=== PATIENT | female | born 2000 | race Caucasian/White ===

== ENCOUNTER 2020-07-22 20:34 | Emergency (ER) | payer OTHER, SELFPAY ==
[2020-07-22 20:55] VITALS: BP 149/87; PULSE 90; RESP 17; TEMP 36.9; O2SAT 97; BMI 34.2
--- NOTE | 2020-07-22 20:59 | ED_ITS ---
HPI - General Adult General: Chief complaint: Needlestick/Injury/Exposure Stated complaint: stuck with dirty needle Time Seen by Provider: 07/22/20 20:45 History of Present Illness: HPI narrative: Patient is a 20-year-old female who presents to the ED after a needlestick. Patient is [employer] and works with was [employer]. 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 Patient went to grab it to remove it and felt something poke her right hand. She dropped the towel and it had dirty needle in it. Patient says that she feels some pain and tingling at the thenar region of the right hand but denies any other symptoms. Patient unaware of what needle contained. She said that the [employer] who placed the needle on passenger seat of car picked needle up on the side of the road earlier today. Associated symptoms: Deny chest pain, dyspnea, headache(s), nausea, rash, palpitations or vomiting Review of Systems Narrative: Patient had an accidental needlestick to right hand. Const: Denies: fever(s), chills or fatigue Eyes: Denies: change in vision or eye discomfort ENMT: Denies: throat pain, odynophagia, nasal discharge or nasal congestion Card: Denies: chest pain, palpitations, edema, swelling of feet/ankles, dyspnea on exertion or orthopnea Resp: Denies: dyspnea, productive cough or non-productive cough GI: Denies: abdominal pain, nausea, vomiting, diarrhea, constipation or hematochezia : Denies: flank pain, dysuria or hematuria Musc: Reports: extremity pain (Mild right hand tenderness.); Denies: neck pain, back pain or extremity swelling Skin/Breast: Denies: rash or new lesions Neuro: Denies: headache(s), numbness in extremities or weakness in extremities Physical Exam Const: COMMON NORMALS: no acute distress, patient oriented x3, healthy appearing and alert GENERAL APPEARANCE: cooperative and comfortable HENMT: COMMON NORMALS: normocephalic HEAD & SCALP: normocephalic MOUTH: Normal oral and palatal mucosa present THROAT: posterior oropharynx normal and uvula midline Eye: COMMON NORMALS: Equal, round and reactive pupils present PUPIL: Yes Equal, round and reactive pupils present Neck/C-Spine: COMMON NORMALS: supple GENERAL: Yes normal visual inspection Resp: COMMON NORMALS: normal respiratory effort, No retractions, No use of accessory muscles and clear to auscultation bilaterally AUSCULTATION: clear to auscultation bilaterally Cardio: COMMON NORMALS: regular rate, regular rhythm, S1 normal heart sound present, S2 normal heart sound present, No gallops present (Cardio), No clicks present (Cardio), No murmurs present (Cardio) and Peripheral pulses 2+ throughout RATE: regular rate RHYTHM: regular rhythm HEART SOUNDS: S1 normal heart sound present and S2 normal heart sound present PERIPHERAL PULSES: Peripheral pulses 2+ throughout GI: COMMON NORMALS: Normal to inspection, nondistended, normoactive bowel so unds present, Soft to palpation, non-tender and no masses PALPATION: Yes Soft to palpation : COMMON NORMALS: Yes no CVA tenderness BLADDER/KIDNEY EXAM: Yes no CVA tenderness Back/Pelvis: COMMON NORMALS: no CVA tenderness Extremity: COMMON NORMALS: normal to inspection NARRATIVE EXTREMITY EXAM: No visible puncture wounds seen on right hand. No swelling, erytheme. Neuro: COMMON NORMALS: patient oriented x3 and moves all extremities SENSORIUM/ORIENTATION: Yes alert Skin: COMMON NORMALS: no rashes or lesions noted NARRATIVE SKIN EXAM: No visible puncture wounds seen on right hand. GENERAL SKIN EXAM: no rashes or lesions noted and dry skin Course Vital Signs: Vital signs: Vital Signs Temperature 98.4 F 07/22/20 20:55 Pulse Rate 86 07/22/20 22:18 Respiratory Rate 18 07/22/20 22:18 Blood Pressure 136/82 07/22/20 22:18 Pulse Oximetry 99 07/22/20 22:18 MDM - General Adult MDM Narrative: Medical decision making narrative: Patient is a 20-year-old female [employer] that comes to the ED after having an accidental needlestick. Patient's police partner picked up a used needle on the side of the road and had it wrapped in some towels on the front seat. Patient did not know what it was grabbed over remove timeout and needle poked her right hand. Needle appeared to be used. Exam of right hand where needle punctured showed no erythema, warmth or puncture wound even seen. Mild tenderness over thenar region. Patient was given tetanus shot here in the ED and also a dose of cephalexin. Hepatitis panel, serum drug panel and HIV labs performed and pending. Patient would like to leave and will call tomorrow to get results of the labs. She was discharged in with a prescription for cephalexin. She was told to have repeat labs done in 1 to 2 months. Follow-up with PCP 7 to 10 days. Return to ED precautions given. Patient understood and agreed with plan. Lab Data: Attestation: I reviewed the patient's lab results. Labs: Lab Results 07/22/20 07/22/20 Range/Units 21:25 21:25 Hepatitis A IgM Ab Non-reactive (Nonreactive) Hep Bs Antigen Non-reactive (Nonreactive) Hep Bs Antibody 11.5 H (0-8.5) Hep B Core Total A b Non-reactive (Nonreactive) Hepatitis C Antibo dy Non-reactive (Nonreactive) HIV 1&2 Ab & HIV 1 Ag Non-reactive (Non-Reactiv) HIV 1&2 Antibody Non-reactive (Non-Reactiv) Discharge Plan Discharge Patient Disposition: Home Clinical Impression: Needlestick injury accident Condition: Stable Prescriptions: New cephalexin 500 mg capsule 500 mg PO QID 4 Days Qty: 16 RF: 0 Discharge Orders: Discharge Order (Routine); Ordered 07/22/20 Ordered By: Anand Cardona Discharge Diet: Regular Discharge Activity: Resume usual activity Patient Instructions: Blood/Body Fluid Exposure - Occupational, Needle Stick Injuries (ED) Activity Restrictions/Additional Instructions: Follow-up with medical provider as directed in 7-10 days. Call [facility] emergency department to get results of the labs. Take medications as prescribed. Return to the ER or your medical provider if condition worsens. Please read and understand discharge instructions. If any questions, please ask. Repeat blood work testing in 1 to 2 months.. 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
[2020-07-22] MEDS: cephALEXin 500 mg Capsule PO (21:38)
[2020-07-22] MEDS: tetanus-diphtheria tox (adult) 0.5 mL SDV IM (21:38)
[2020-07-22 22:18] VITALS: BP 136/82; PULSE 86; RESP 18; O2SAT 99
[2020-07-22 22:23] LABS: Hepatitis A Antibody IgM Non-Reactive (Nonreactive); Hepatitis B Core AB, Total Non-Reactive (Nonreactive); Hepatitis B Surface AB 11.5 (0-8.5); Hepatitis B Surface Antigen Non-Reactive (Nonreactive); Hepatitis C Virus Antibody Non-Reactive (Nonreactive)
[2020-07-22 22:46] LABS: HIV 1 & 2 Antibody Non-Reactive (Non-Reactiv); HIV 1 & 2 Antigen Non-Reactive (Non-Reactiv)
[2020-07-26 10:59] LABS: Amphetamine negative; Barbiturates negative; Benzodiazepines negative; Cocaine Metabolites negative; Marijuana(Tetrahydrocannabino) negative; Opiates negative; PCP (Phencyclidine) negative
== END 2020-07-22 22:22 | disposition home or self-care (01) ==
PROVIDERS: Emergency Provider Physician Assistant
DX: S61.431A Puncture wound without foreign body of right hand, initial encounter (principal); W46.1XXA Contact with contaminated hypodermic needle, initial encounter; Z23 Encounter for immunization
CPT/HCPCS: 12345; 80307; 86705; 86706; 86709; 86803; 87340; 87806; 90471; 90714; 99281; 99283

== ENCOUNTER → 2020-08-17 15:21 | Outpatient (BNVA) | payer OTHER, BC, SELFPAY | DX: J02.9 Acute pharyngitis, unspecified (principal) | CPT/HCPCS: 87071; 87880 ==

== ENCOUNTER 2020-11-14 16:12 | Emergency (ER) | payer OTHER, BC, SELFPAY ==
[2020-11-14 16:19] VITALS: BP 138/77; PULSE 94; RESP 14; TEMP 36.9; O2SAT 99; BMI 39.0
--- NOTE | 2020-11-14 16:25 | USR_ITS ---
PROCEDURE INFORMATION: Exam: US Duplex Right Lower Extremity Veins, Limited Exam date and time: 11/14/2020 4:45 PM Age: 20 years old Clinical indication: Pain; Leg, upper and leg, lower; Right; Additional info: Pain and swelling TECHNIQUE: Imaging protocol: Real-time Duplex ultrasound of the Right Lower Extremity with 2-D michael scale, color Doppler flow and spectral waveform analysis with image documentation. Limited exam was focused on the right lower extremity veins. Total images: 2008 COMPARISON: No relevant prior studies available. FINDINGS: Right deep veins: Unremarkable. The common femoral, femoral, proximal profunda femoral and popliteal veins are patent without thrombus. Normal Doppler waveforms. Normal compressibility and/or augmentation response. Right superficial veins: Unremarkable. Saphenofemoral junction is patent without thrombus. Soft tissues: At the site of the right medial thigh site of pain in swelling is a subcutaneous potential small 16 mm x 8 mm x 9 mm seroma/hematoma versus unorganized abscess. US/[place] [address] IMPRESSION: 1. No evidence of deep vein thrombosis. 2. At the site of the right medial thigh site of pain in swelling is a subcutaneous potential small seroma/hematoma versus unorganized abscess.
--- NOTE | 2020-11-14 16:25 | W.ED.GENADLT ---
Documented by User: KAREEN Stanton 11/14/20 16:58 HPI - General Adult General: Chief complaint: General Medical Stated complaint: DVT Time Seen by Provider: 11/14/20 16:17 History of Present Illness: HPI narrative: Patient is a 20-year-old female who comes to the ED with right leg pain and swelling. Patient says on October 19 she was at her job and climbing this ladder and slipped in the inside bar hit her upper medial aspect of right thigh. Afterwards she had a lot of pain and bruising, but over time the bruising went away but she developed a nodule on her right thigh. Denies any open wound or bleeding after injury. She says her right thigh is still painful and she rates it an 8 out of 10. She says over the past couple days she started developing some right calf tenderness as well. Patient says she does have an IUD currently. Denies any chest pain, shortness of breath or hemoptysis. Associated symptoms: Deny chest pain, dyspnea, headache(s), nausea, rash, palpitations or vomiting Review of Systems Const: Denies: fever(s), chills or fatigue Eyes: Denies: change in vision or eye discomfort ENMT: Denies: throat pain, odynophagia, nasal discharge or nasal congestion Card: Denies: chest pain, palpitations, edema, swelling of feet/ankles, dyspnea on exertion or orthopnea Resp: Denies: dyspnea, productive cough or non-productive cough GI: Denies: abdominal pain, nausea, vomiting, diarrhea, constipation or hematochezia : Denies: flank pain, dysuria or hematuria Musc: Reports: extremity pain (Right leg pain) and extremity swelling (right leg swelling); Denies: neck pain or back pain Skin/Breast: Denies: rash or new lesions Neuro: Denies: headache(s), numbness in extremities or weakness in extremities PFS ED PFSH: Social History Smoking and tobacco status: former smoker Physical Exam Const: COMMON NORMALS: no acute distress, patient oriented x3 and alert GENERAL APPEARANCE: cooperative and comfortable HENMT: COMMON NORMALS: normocephalic HEAD & SCALP: normocephalic MOUTH: Normal oral and palatal mucosa present THROAT: posterior oropharynx normal and uvula midline Eye: COMMON NORMALS: Equal, round and reactive pupils present PUPIL: Yes Equal, round and reactive pupils present Neck/C-Spine: COMMON NORMALS: supple GENERAL: Yes normal visual inspection Resp: COMMON NORMALS: normal respiratory effort, No retractions, No use of accessory muscles and clear to auscultation bilaterally AUSCULTATION: clear to auscultation bilaterally Cardio: COMMON NORMALS: regular rate, regular rhythm, S1 normal heart sound present, S2 normal heart sound present, No gallops present (Cardio), No clicks present (Cardio), No murmurs present (Cardio) and Peripheral pulses 2+ throughout RATE: regular rate RHYTHM: regular rhythm HEART SOUNDS: S1 normal heart sound present and S2 normal heart sound present PERIPHERAL PULSES: Peripheral pulses 2+ throughout GI: COMMON NORMALS: Normal to inspection, nondistended, normoactive bowel sounds present, Soft to palpation, non-tender and no masses PALPATION: Yes Soft to palpation : COMMON NORMALS: Yes no CVA tenderness BLADDER/KIDNEY EXAM: Yes no CVA tenderness Back/Pelvis: COMMON NORMALS: no CVA tenderness Extremity: COMMON NORMALS: no pedal edema NARRATIVE EXTREMITY EXAM: Patient has a tender 1 cm nodule in right medial aspect of thigh. Does have some surrounding erythema. GENERAL: Yes calf tenderness (right calf) Neuro: COMMON NORMALS: patient oriented x3 and moves all extremities SENSORIUM/ORIENTATION: Yes alert Skin: NARRATIVE SKIN EXAM: Patient has a tender 1 cm nodule in right medial aspect of thigh. Does have some surrounding erythema. GENERAL SKIN EXAM: dry skin Course Vital Signs: Vital signs: Vital Signs Temperature 98.4 F 11/14/20 17:51 Pulse Rate 72 11/14/20 17:51 Respiratory Rate 16 11/14/20 17:51 Blood Pressure 98/60 11/14/20 17:51 Pulse Oximetry 99 11/14/20 17:51 Discharge Plan Discharge Patient Disposition: Home Clinical Impression: Cellulitis and abscess of lower extremity Abscess of skin Qualifiers: Site of cutaneous abscess: extremity Site of cutaneous abscess of extremity: lower extremity Laterality: right Qualified Code(s): L02.415 - Cutaneous abscess of right lower limb Condition: Stable Prescriptions: New Bactrim DS 800-160 mg tablet 1 tab PO BID 10 Days Qty: 20 RF: 0 IBU 600 mg tablet 600 mg PO TID PRN (Reason: pain) Qty: 30 RF: 0 No Action Tylenol 325 mg Tablet 325 mg PO QID PRN (Reason: Pain) RF: 0 ibuprofen 200 mg Tablet 200 - 400 mg PO Q6H PRN (Reason: Pain) RF: 0 Discharge Orders: Discharge ED (Routine); Ordered 11/14/20 Ordered By: Neelam Colby Discharge Diet: Usual diet Discharge Activity: Limit activity as instructed Patient Instructions: Methicillin Resistant Staphylococcus Aureus (ED), Cellulitis (ED), Abscess Incision and Drainage (ED) Activity Restrictions/Additional Instructions: Take antibiotics until all gone, drink plenty of fluids and take antibiotic with food. Return to the emergency department if you develop fever, increased redness swelling or increased pain to the right leg. Cool compresses may alternate with warm moist heat as needed for pain and swelling. Keep the right leg elevated to help with swelling and pain Keep the wound covered until drainage has stopped. Stand Alone Forms: Work/School Release Sign Out Sign Out Data: Patient Sign Out occurred on 11/14/20 at 17:09. Patient's care was discussed, and care was transferred from to GENET Smith. Post-Handoff Eval: Signed out accepted from KAREEN Stanton; examination of the RLE, rt thigh with presumed abscess medial, with surrounding erythema. US at bedside for venous doppler and soft tissue exam RLE. Pt medicated for pain. Coding Level of Care Code ED Automotive Service Professional for Chg Fwd Exam Comprehensive Documented by User: GENET Smith 11/14/20 19:10 HPI - General Adult General: Chief complaint: General Medical Stated complaint: DVT Time Seen by Provider: 11/14/20 16:17 PFS ED PFSH: Social History Smoking and tobacco status: former smoker Procedures Abscess I/D Site: lower extremity Side (if applicable): right Local Anesthetic: lidocaine 2% and with epi Amount of anesthesia used (mL): 3 Technique: incised with #11 blade Irrigation: Yes Packing used?: none Complications: other (none - moderate amount of purulent exudate expressed from the abscess, culture obtained) Course Vital Signs: Vital signs: Vital Signs Temperature 98.4 F 11/14/20 17:51 Pulse Rate 72 11/14/20 17:51 Respiratory Rate 16 11/14/20 17:51 Blood Pressure 98/60 11/14/20 17:51 Pulse Oximetry 99 11/14/20 17:51 MDM - General Adult Imaging Data^: US Vascular: Radiologist's impression: Right deep vein; unremarkable. Common femoral, femoral, proximal profunda femoral and popliteal veins are patent without thrombus. Normal Doppler waveforms. Normal compressibility and or augmentation response. Right superficial vein; unremarkable. Saphenofemoral junction is patent without thrombus. Soft tissue; at the site of the right medial thigh of pain and swelling is a subcutaneous potential small 16 mm x 8 mm x 9 mm seroma/hematoma versus an organized abscess. Impression; #1. No evidence of deep vein thrombosis. #2. At the site of the right medial thigh site of pain and swelling is subcutaneous potential small seroma/hematoma versus an organized abscess. Discharge Plan Discharge Patient Disposition: Home Clinical Impression: Cellulitis and abscess of lower extremity Abscess of skin Qualifiers: Site of cutaneous abscess: extremity Site of cutaneous abscess of extremity: lower extremity Laterality: right Qualified Code(s): L02.415 - Cutaneous abscess of right lower limb Condition: Stable Prescriptions: New Bactrim DS 800-160 mg tablet 1 tab PO BID 10 Days Qty: 20 RF: 0 IBU 600 mg tablet 600 mg PO TID PRN (Reason: pain) Qty: 30 RF: 0 No Action Tylenol 325 mg Tablet 325 mg PO QID PRN (Reason: Pain) RF: 0 ibuprofen 200 mg Tablet 200 - 400 mg PO Q6H PRN (Reason: Pain) RF: 0 Discharge Orders: Discharge ED (Routine); Ordered 11/14/20 Ordered By: Neelam Colby Discharge Diet: Usual diet Discharge Activity: Limit activity as instructed Patient Instructions: Methicillin Resistant Staphylococcus Aureus (ED), Cellulitis (ED), Abscess Incision and Drainage (ED) Activity Restrictions/Additional Instructions: Take antibiotics until all gone, drink plenty of fluids and take antibiotic with food. Return to the emergency department if you develop fever, increased redness swelling or increased pain to the right leg. Cool compresses may alternate with warm moist heat as needed for pain and swelling. Keep the right leg elevated to help with swelling and pain Keep the wound covered until drainage has stopped. Stand Alone Forms: Work/School Release Sign Out Sign Out Data: Patient Sign Out occurred on 11/14/20 at 17:09. Patient's care was discussed, and care was transferred from to GENET Smith. Post-Handoff Eval: Signed out accepted from KAREEN Stanton; examination of the RLE, rt thigh with presumed abscess medial, with surrounding erythema. US at bedside for venous doppler and soft tissue exam RLE. Pt medicated for pain. Coding Level of Care Code ED Automotive Service Professional for Chg Fwd Exam Comprehensive
[2020-11-14] MEDS: HYDROcodone-acetaminophen 7.5-325 mg Tablet 1 TAB PO (17:01)
[2020-11-14 17:28] VITALS: BP 132/85; RESP 14; TEMP 36.9; O2SAT 99
[2020-11-14 17:51] VITALS: BP 98/60; PULSE 72; RESP 16; TEMP 36.9; O2SAT 99
[2020-11-14] MEDS: ibuprofen 600 mg Tablet PO (18:30)
[2020-11-14] MEDS: sulfamethoxazole-trimeth DS 160-800 mg Tablet 1 TAB PO (19:07)
[2020-11-14 19:10] VITALS: PULSE 83; RESP 18; O2SAT 97
[2020-11-14 19:11] VITALS: BP 112/46; PULSE 76; RESP 18; O2SAT 99
== END 2020-11-14 19:18 | disposition home or self-care (01) ==
PROVIDERS: Emergency Provider Nurse Practitioner Family
DX: L02.415 Cutaneous abscess of right lower limb (principal); L03.115 Cellulitis of right lower limb; Z87.891 Personal history of nicotine dependence
CPT/HCPCS: 12345; 87070; 87075; 87077; 87186; 87205; 93971; 99281; 99283

== ENCOUNTER 2021-02-16 00:25 | Emergency (ER) | payer OTHER, BC, SELFPAY ==
[2021-02-16 00:30] VITALS: BP 118/79; PULSE 83; RESP 17; TEMP 36.6; O2SAT 97; BMI 41.5
[2021-02-16 00:50] LABS: Basophils # 0.1 10^3/uL (0.0-0.1); Basophils % 0.6 %; Eosinophils # 0.4 10^3/uL (0.0-0.8); Eosinophils % 4.5 %; Hematocrit 36.3 % (37.0-47.0); Hemoglobin 11.5 g/dL (11.5-15.3); Lymphocytes % 20.7 %; Mean Corpuscular HGB Conc 31.7 g/dL (30.0-36.0); Mean Corpuscular Hemoglobin 27.6 pg (28.0-34.0); Mean Corpuscular Volume 87.1 fL (81-99); Mean Platelet Volume 10.4 fL (7.4-10.4); Monocytes # 0.5 10^3/uL (0.2-0.9); Monocytes % 5.2 %; Neutrophils # 6.51 10^3/uL (1.8-7.7); Neutrophils % 68.8 %; Nucleated Red Blood Cells % 0 %; Platelet Count 268 10^3/cmm (130-400); Red Blood Count 4.17 10^6/uL (4.1-5.3); Red Cell Distribution Width 15.5 % (12.1-15.1); White Blood Count 9.5 10^3/uL (4.0-10.0)
[2021-02-16 02:27] LABS: HCG Qualitative Urine. Negative (Negative)
[2021-02-16 02:28] VITALS: BP 139/81; PULSE 71; RESP 18; O2SAT 100
--- NOTE | 2021-02-16 02:41 | ED_ITS ---
HPI - Headache General: Chief Complaint: Headache Stated Complaint: migraine/excessive vaginal bleeding Time Seen by Provider: 02/16/21 02:01 Source: patient Mode of arrival: ambulatory Limitations: no limitations History of Present Illness: HPI Narrative: 20 yo female patient presents to ER with her typical migraine smyptoms. Pt states she started her period and bleeds heavily and this tends to trigger a migraine. Pt c/o nausea photophobia which are all normal symptoms for her migraine. Onset a few hours ago Associated symptoms: Reports nausea; Deny chest pain, confusion, diaphoresis, fever(s), lightheadedness, malaise, pre-syncope, rash, syncope or vomiting Review of Systems Const: Denies: fever(s), chills, body aches, change in appetite, change in weight, fatigue, malaise or diaphoresis Eyes: Denies: change in vision, blurry vision, blind spots, photophobia, eye discomfort, eye discharge, eye redness, floaters or seeing flashes ENMT: Denies: throat pain, uvular edema, enlarged tonsils, odynophagia, hoarseness, mouth pain, swelling of lips/tongue, oral sores, bleeding gums, dental pain, dry mouth, ear or mastoid pain, ear discharge, change in hearing, tinnitus, disequilibrium, nasal discharge, nasal congestion, post nasal drip or sinus pain Card: Denies: chest pain, palpitations, irregular heart rhythm, edema, swelling of feet/ankles, lightheadedness, syncope, pre-syncope, dyspnea on exertion, orthopnea, leg pain with exertion or acrocyanosis Resp: Denies: dyspnea, productive cough, non-productive cough, wheezing, stridor, pain on inspiration, change in phlegm color, hemoptysis or chest congestion GI: Reports: nausea; Denies: abdominal pain, vomiting, hematemesis, dysphagia, diarrhea, constipation, GI cramping, change in bowel habits or rectal pain : Denies: flank pain, difficulty voiding, dysuria, urinary frequency, urinary urgency, urinary hesitancy or hematuria Musc: Denies: neck pain, back pain, extremity pain, extremity swelling, joint pain, joint swelling, joint redness, joint warmth or deformity Skin/Breast: Denies: rash, pruritus, erythema, sores, new lesions, changes in skin color or dry skin Neuro: Reports: headache(s); Denies: numbness in extremities, weakness in extremities, sensory changes, lack of coordination, difficulty walking, frequent falls, dizziness, vertigo, confusion, behavioral changes, Slurred speech present, difficulty communicating thoughts or seizure-like activity Psych: Denies: anxiety, depression, suicidal ideation or homicidal ideation Endo: Denies: polyuria, polydipsia, tired all the time, cold intolerance, excessive sweating, flushing, hot flashes or heat intolerance Simon/Lymph: Denies: easy bruising, easy bleeding, petechiae, purpura, enlarged lymph nodes or tender lymph nodes All/Imm: Denies: urticaria, throat swelling, tongue swelling, facial swelling, acute wheezing or itchy eyes PFSH ED PFSH: Social History Smoking and tobacco status: former smoker Female Reproductive History: Date of last menstrual period: 02/14/21 Physical Exam Const: COMMON NORMALS: no acute distress, patient oriented x3, healthy appearing, alert and well nourished GENERAL APPEARANCE: cooperative, comfortable, well kempt and well developed; not ill appearing ORIENTATION/CONSCIOUSNESS: Yes awake, Yes oriented to person, Yes oriented to place and Yes oriented to time HENMT: COMMON NORMALS: normocephalic, atraumatic, hearing grossly normal bilaterally, external ears normal, EAC's normal, TM's normal bilaterally, Normal external nose present, Normal nasal mucous membranes and turbinates present and moist oral mucous membranes HEAD & SCALP: normal to inspection, normocephalic and atraumatic FACE & SINUS: normal facial exam, sinuses nontender and face symmetric NOSE: Normal external nose present, Normal nares present, Normal nasal mucous membranes and turbinates present, No nasal discharge present and Abnormal external nose present EXTERNAL EAR: Yes external ears normal and Yes mastoids normal EXTERNAL AUDITORY CANAL: EAC's normal TYMPANIC MEMBRANE: TM's normal bilaterally MOUTH: Normal oral and palatal mucosa present, lip normal, tongue normal and Normal salivary glands and ducts present THROAT: no uvular edema Eye: COMMON NORMALS: Equal, round and reactive pupils present, EOMs intact bilaterally, conjunctivae normal, no scleral icterus and no papilledema GENERAL EYE: appearance normal, both eyes and all related structures EYELID: eyelids normal CONJUNCTIVA: Yes conjunctivae normal SCLERA: sclerae normal CORNEA: Yes corneas normal PUPIL: Yes Equal, round and reactive pupils present DIRECT OPHTHALMOSCOPY: Yes no papilledema Neck/C-Spine: COMMON NORMALS: full ROM, no lymphadenopathy, supple, no meningeal signs, no JVD and Thyroid normal GENERAL: Yes normal visual inspection and Yes trachea midline THYROID: Thyroid normal CERVICAL SPINE: Yes cervical ROM normal Lymph: LYMPHATIC: no lymphadenopathy noted and no lymphedema noted Chest: COMMONS NORMALS: normal inspection of the chest and normal palpation of entire chest wall Resp: COMMON NORMALS: normal respiratory effort, No retractions, No use of accessory muscles and clear to auscultation bilaterally EFFORT & INSPECTION: Yes able to speak in complete sentences and Yes symmetric chest movement AUSCULTATION: clear to auscultation bilaterally Cardio: COMMON NORMALS: no JVD, regular rate and regular rhythm RATE: regular rate RHYTHM: regular rhythm GI: COMMON NORMALS: Normal to inspection, nondistended, normoactive bowel sounds present, Soft to palpation, non-tender, No hepatosplenomegaly present, no masses and no bruits INSPECTION: Yes normal to inspection AUSCULTATION: Yes normoactive bowel sounds PALPATION: Yes Soft to palpation and Yes No hepatosplenomegaly present PERCUSSION: normal to percussion RECTAL EXAM: deferred : COMMON NORMALS: Yes no CVA tenderness BLADDER/KIDNEY EXAM: Yes no CVA tenderness Back/Pelvis: COMMON NORMALS: no CVA tenderness, thoracic and lumbar spine normal to inspection, no thoracic nor lumbar tenderness and thoraco-lumbar ROM normal THORACIC SPINE/UPPER BACK: Yes normal to inspection LUMBAR SPINE/LOWER BACK: Yes normal to inspection Extremity: COMMON NORMALS: normal to inspection, full ROM and capillary refill normal GENERAL: Yes normal exam except as noted Neuro: COMMON NORMALS: patient oriented x3, CN's II-XII intact bilaterally, moves all extremities, no focal motor deficits, no sensory deficits noted, deep tendon reflexes 2+ bilaterally and gait normal SENSORIUM/ORIENTATION: Yes alert, Yes oriented to person, Yes oriented to place and Yes oriented to time MENINGEAL SIGNS: Yes no meningeal signs CRANIAL NERVES: Yes CN normal except as noted SPEECH: speech normal GAIT: Yes Normal gait present SENSORY EXAM: Yes extremities MOTOR EXAM: 5/5 motor strength present throughout Psych: COMMON NORMALS: mental status grossly normal, Normal thought process present, cooperative, normal affect, speech normal, activity/motor behavior normal, denies hallucinations, denies homicidal ideation and denies suicidal ideation APPEARANCE: Yes grossly normal and Yes well kempt ATTITUDE: Yes calm ACTIVITY/MOTOR BEHAVIOR: Yes appropriate eye contact SPEECH: Yes normal speech THOUGHT PROCESS: Normal thought process present THOUGHT CONTENT: Yes Normal thought content present ATTENTION/CONCENTRATION: Yes attention grossly intact MEMORY/COGNITION: Yes memory grossly intact INSIGHT: Good insight present (Psych) JUDGEMENT: Good judgement present (Psych) Skin: COMMON NORMALS: no rashes or lesions noted, no wounds, turgor normal, no jaundice, no petechiae and no mottling GENERAL SKIN EXAM: no rashes or lesions noted and turgor normal Course Vital Signs: Vital signs: Vital Signs Temperature 98 F 02/16/21 00:30 Pulse Rate 77 02/16/21 04:04 Respiratory Rate 18 02/16/21 04:04 Blood Pressure 122/90 02/16/21 04:04 Pulse Oximetry 98 02/16/21 04:04 MDM - Headache MDM Narrative: Medical decision making narrative: Pt is well appearing non toxic and in no acute distress. Pt presents with her typical migraine headache. I did check an H&H given patients complaints of heavy menses which were stable. Pt was given compazine, toradol, decardon and benadryl and 1 liter of Normal saline and had resolution of migraine headache. pt has no focal neuro deficits noted. I do not feel CT is warranted given patients typical pattern of migraines. Pt is afebrile. Lab Data: Labs: Lab Results 02/16/21 02/16/21 Range/Units 00:43 02:24 WBC 9.5 (4.0-10.0) 10^3/ uL RBC 4.17 (4.1-5.3) 10^6/u L Hgb 11.5 (11.5-15.3) g/dL Hct 36.3 L (37.0-47.0) % MCV 87.1 (81-99) fL MCH 27.6 L (28.0-34.0) pg MCHC 31.7 (30.0-36.0) g/dL RDW 15.5 H (12.1-15.1) % Plt Count 268 (130-400) 10^3/c mm MPV 10.4 (7.4-10.4) fL Neut % (Auto) 68.8 % Lymph % (Auto) 20.7 % [place] % (Auto) 5.2 % Eos % (Auto) 4.5 % Baso % (Auto) 0.6 % Neut # (Auto) 6.51 (1.8-7.7) 10^3/u L Lymph # (Auto) 2.0 (0.8-4.8) 10^3/u L [place] # (Auto) 0.5 (0.2-0.9) 10^3/u L Eos # (Auto) 0.4 (0.0-0.8) 10^3/u L Baso # (Auto) 0.1 (0.0-0.1) 10^3/u L Nucleated RBC % (a uto) 0 % Nucleated RBCs # 0.0 /100WBC HCG, Qual Negative (Negative) Discharge Plan Discharge Patient Disposition: Home Clinical Impression: Migraine Qualifiers: Migraine type: chronic without aura Status migrainosus presence: without status migrainosus Intractability: intractable Qualified Code(s): G43.719 - Chronic migraine without aura, intractable, without status migrainosus Condition: Stable Prescriptions: No Action Tylenol 325 mg Tablet 325 mg PO QID PRN (Reason: Pain) RF: 0 ibuprofen 200 mg Tablet 200 - 400 mg PO Q6H PRN (Reason: Pain) RF: 0 IBU 600 mg tablet 600 mg PO TID PRN (Reason: pain) Qty: 30 RF: 0 Discharge Orders: Discharge ED (Routine); Ordered 02/16/21 Ordered By: Meagan Frederick Discharge Diet: Advance as tolerated Discharge Activity: Increase activity as tolerated Patient Instructions: Opioid Safety Activity Restrictions/Additional Instructions: Please return to the ER with any worsening of symptoms Please take migraine meds as prescribed Coding Level of Care Code ED [employer] Developer for Andrade Steward
[2021-02-16] MEDS: sodium chloride 0.9% 1,000 ML 999 ML IV (02:51)
[2021-02-16] MEDS: ketorolac 60 mg/2 mL INJ IM (02:51)
[2021-02-16] MEDS: dexamethasone 10 mg/mL INJ IM (02:52)
[2021-02-16] MEDS: prochlorperazine 10 mg Tablet PO (02:52)
[2021-02-16] MEDS: diphenhydrAMINE 50 mg/mL SDV 1mL IM (02:52)
[2021-02-16 03:37] VITALS: RESP 18; O2SAT 100
[2021-02-16] MEDS: morphine 4 mg/mL SDV 1 mL IM (03:37)
[2021-02-16 04:04] VITALS: BP 122/90; PULSE 77; RESP 18; O2SAT 98
== END 2021-02-16 04:05 | disposition home or self-care (01) ==
PROVIDERS: Emergency Medicine; Emergency Provider Registered Nurse
DX: G43.719 Chronic migraine without aura, intractable, without status migrainosus (principal); Z87.891 Personal history of nicotine dependence
CPT/HCPCS: 81025; 85025; 96360; 96372; 99283; J1100; J1200; J1885; J2270; J7030; Q0164

== ENCOUNTER → 2021-05-06 10:35 | Outpatient (BNVA) | payer OTHER, BC, SELFPAY | PROVIDERS: PCP Family Medicine Adult Medicine; Visit Provider Family Medicine Adult Medicine | DX: Z13.30 Encounter for screening examination for mental health and behavioral disorders, unspecified (principal); E66.01 Morbid (severe) obesity due to excess calories; Q22.1 Congenital pulmonary valve stenosis; Z68.41 Body mass index [BMI] 40.0-44.9, adult; F32.9 Major depressive disorder, single episode, unspecified; F41.9 Anxiety disorder, unspecified; F51.02 Adjustment insomnia | CPT/HCPCS: 80053; 80061; 81025; 83036; 84443; 85025; 86592; 87491; 87530; 87591 ==

== ENCOUNTER 2021-06-02 14:59 | Observation (INO) | payer OTHER, BC, SELFPAY ==
[2021-06-02] VITALS (10 sets, daily range): BP systolic 121–179; BP diastolic 45–125; PULSE 69–123; RESP 16–39; O2SAT 95–99; BMI 31.5
--- NOTE | 2021-06-02 15:22 | XRR_ITS ---
PROCEDURE INFORMATION: Exam: XR Chest Exam date and time: 06/02/2021 3:22 PM Age: 21 years old Clinical indication: Sternal or substernal pain; Additional info: Cp, difficulty breathing TECHNIQUE: Imaging protocol: XR of the chest. Views: 1 view. COMPARISON: [facility] [place] Chest 2 views 11/01/2018 11:59 AM FINDINGS: Lungs: Decreased inspiration, otherwise the lungs are clear. Pleural spaces: No pleural effusion. No pneumothorax. Heart/Mediastinum: The cardiac silhouette is mildly enlarged. This may be due at least in part to decreased inspiration and AP technique. Mediastinal contours are unremarkable. Bones/joints: Unremarkable for age. Soft tissues: Patient has bilateral nipple piercings. XR/XR chest 1V portable [id number] IMPRESSION: 1. Decreased inspiration, otherwise the lungs are clear. 2. The cardiac silhouette is mildly enlarged. This may be due at least in part to decreased inspiration and AP technique. 3. Incidental/nonacute findings are listed in the report.
--- NOTE | 2021-06-02 15:22 | ECG_ITS ---
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
[2021-06-02] MEDS: LORazepam 2 mg/mL INJ 1 mL (15:23)
[2021-06-02] MEDS: ondansetron 2 mg/ML SDV 2 mL 4 MG IVP (15:25)
[2021-06-02 15:29] LABS: Basophils # 0.1 10^3/uL (0.0-0.1); Basophils % 0.6 %; Eosinophils # 0.3 10^3/uL (0.0-0.8); Eosinophils % 2.1 %; Hematocrit 37.8 % (37.0-47.0); Hemoglobin 11.9 g/dL (11.5-15.3); Lymphocytes # 3.8 10^3/uL (0.8-4.8); Lymphocytes % 31.8 %; Mean Corpuscular HGB Conc 31.5 g/dL (30.0-36.0); Mean Corpuscular Hemoglobin 28.2 pg (28.0-34.0); Mean Corpuscular Volume 89.6 fl (81-99); Mean Platelet Volume 11.1 fL (7.4-10.4); Monocytes # 0.8 10^3/uL (0.2-0.9); Monocytes % 6.6 %; Neutrophils # 7.05 10^3/uL (1.8-7.7); Neutrophils % 58.6 %; Nucleated Red Blood Cells % 0 %; Platelet Count 307 10^3/cmm (130-400); Red Blood Count 4.22 10^6/uL (4.1-5.3); Red Cell Distribution Width 13.9 % (12.1-15.1)
[2021-06-02] MEDS: morphine 4 mg/mL SDV 1 mL IVP (15:30)
[2021-06-02 15:45] LABS: Glucose Point of Care 113 mg/dL (70-110)
[2021-06-02] MEDS: sodium chloride 0.9% 1,000 ML 999 ML IV (15:48)
[2021-06-02 16:44] LABS: Lactate (Lactic Acid level) 1.4 mmol/L (0.5-2.2)
[2021-06-02 16:45] LABS: Alanine Aminotransferase 11 U/L (0-33); Albumin Level 4.1 g/dL (3.5-5.2); Alkaline Phosphatase 99 IU/L (35-105); Anion Gap 17.5 (5-19); Aspartate Amino Transferase 12 U/L (0-32); Blood Urea Nitrogen 9 mg/dL (6-20); C Reactive Protein 8.2 mg/L (0.0-4.9); Carbon Dioxide 21 mmol/L (22-29); Chloride 102 mmol/L (98-107); Creatine Phosphokinase 83 U/L (26-192); Globulin 2.3 g/dL (1.3-4.6); Glomerular Filtration Rate 77.6 mL/min (90-130); Glucose 83 mg/dL (65-115); Lipase 21 U/L (13-60); Osmolality Calculated 282 mOsm/kg (285-295); Potassium 3.5 mmol/L (3.5-5.1); Sodium 137 mmol/L (136-145); Total Bilirubin 0.2 mg/dL (0.15-1.2); Total Protein 6.4 g/dL (6.6-8.7)
[2021-06-02 16:55] LABS: ABG PCO2 24.5 mmHg (35-45); ABG PH Result 7.56 (7.35-7.45); Arterial Blood Gas Hematocrit 33.5 % (37-47); Base Excess ABG 0.9 mmol/L (-2.0-2.0); Blood Gas Allen Test Pos; Blood Gas Sample Site Radial, right; Blood Gas Sample Type Arterial; Carboxyhemoglobin 0.6 %THgb (0.4-20.1); HGB O2 Sat 98.2 % (95-100); Ionized Calcium Level - ABG 1.1 mmol/L (1.1-1.4); Methemoglobin 0.9 % (0.4-1.5); Oxygen Device NC; Oxygen Saturation ABG 99.7; Potassium Level - ABG 3.5 mmol/L (3.5-5.0); Total Hemoglobin 10.9 g/dL (12-16)
--- NOTE | 2021-06-02 17:03 | CTR_ITS ---
PROCEDURE INFORMATION: Exam: CT Head Without Contrast Exam date and time: 06/02/2021 5:03 PM Age: 21 years old Clinical indication: Altered mental status/memory loss; Confusion or disorientation; Additional info: Headache AMS TECHNIQUE: Imaging protocol: Computed tomography of the head without contrast. Sagittal and coronal reformatted images were created and reviewed. Radiation optimization: All CT scans at this facility use at least one of these dose optimization techniques: automated exposure control; mA and/or kV adjustment per patient size (includes targeted exams where dose is matched to clinical indication); or iterative reconstruction. COMPARISON: No relevant prior studies available. RADIATION DOSE METRICS: Total DLP (mGy-cm): 991.84 FINDINGS: Brain: No acute intracranial hemorrhage. No acute infarct. No intra-axial or extra-axial masses. Mooney-white matter differentiation is preserved. No cerebral edema. No extra-axial fluid collections. No midline shift. The cerebellar tonsils extend just below the level of the foramen magnum. Cerebral ventricles: No hydrocephalus. Paranasal sinuses: Visualized paranasal sinuses are clear. Mastoid air cells: Mastoid air cells are clear bilaterally. Orbital cavity: Globes and lenses, extraocular muscles, and optic nerves are intact bilaterally. No acute intraorbital abnormality. Bones/joints: Marked left nasal septal deviation. Soft tissues: No acute abnormality of the extracranial soft tissues. CT/CT head wo con* [id number] IMPRESSION: 1. No acute abnormality of the brain. 2. Low lying cerebellar tonsils. 3. Incidental/nonacute findings are listed in the report. Radiation Dose CTDIVOL = (mGy): DLP = 991.84 (mGy-cm)
[2021-06-02 17:09] LABS: Troponin(5th) Baseline 7 ng/L (0-10)
--- NOTE | 2021-06-02 17:22 | ECG_ITS ---
[facility] Test Date: 2021-06-02 Pat Name: Halima Gutiérrez Department: Room: Gender: Female Cost Report Clerk: : 2000 Requested By: Fredi Isidro I Order Number: [id number] Reading MD: MILLIE FITZPATRICK Measurements Intervals [place] Rate: 86 P: 44 DE: 198 QRS: 74 QRSD: 96 T: 40 QT: 372 QTc: 445 Interpretive Statements SINUS RHYTHM POSSIBLE RIGHT VENTRICULAR CONDUCTION DELAY [RSR (QR) IN V1/V2] Compared to ECG 06/02/2021 15:07:34 Sinus tachycardia no longer present T-wave abnormality no longer present Electronically Signed On 06-02-2021 21:09:40 CDT by MILLIE FITZPATRICK [id number]
[2021-06-02 17:30] LABS: Amphetamines Screen Urine Negative (Negative); Barbiturates Screen Urine Negative (Negative); Benzodiazepines Screen Urine Negative (Negative); Cocaine Screen Urine Negative (Negative); Opiate Screen Urine Positive (Negative); PCP Screen Urine Negative (Negative); THC Screen Urine Negative (Negative)
[2021-06-02] MEDS: diphenhydrAMINE 50 mg/mL SDV 1mL 25 MG IVP (17:50)
--- NOTE | 2021-06-02 17:58 | W.ED.CHESTPA ---
Documented by User: Fredi Isidro MD, [facility] 06/03/21 11:55 HPI - Chest Pain General: Chief Complaint: ER Hold Stated Complaint: CHEST PAIN/ AMS Time Seen by Provider: 06/02/21 15:05 Source: patient, EMS and RN notes reviewed Mode of arrival: EMS Limitations: no limitations History of Present Illness: HPI narrative: This 21-year-old female patient presents to the emergency department with complaints of chest pain and headache. Symptoms started shortly after she made a traffic stop and seized some drugs. 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 While she was holding a bag she was sweating and when she tried to wipe the sweat from her face her hand touched her eyes. Shortly after she started to feel chest pain, lightheaded and had a severe headache. Patient is hyperventilating when I am talking to her and she is clearly uncomfortable. She also has chest and upper abdominal pain. She has a history of pulmonic stenosis and she follows with a seedling sorter at [facility]. When I was evaluating her the first time appeared to be having a seizure, tonic in nature. This lasted for about 1 minute, and shortly after she had another seizure-like activity. She also complains that she has a sensation like she is not able to breathe. complaint: chest pain Onset (ago): minute(s) (30) Timing of current episode: constant Prior episodes: No Onset: other (see HPI) Pain location: substernal Pain radiation: other (epigastric region) Severity: severe Quality: sharp Relieving factors: nothing Associated symptoms: Reports abdominal pain, dyspnea and nausea; Deny diaphoresis, fever(s), leg edema, palpitations, syncope or vomiting Review of Systems General: Reports: 10 or more systems reviewed and unremarkable except in HPI and below Const: Denies: fever(s) or diaphoresis Card: Denies: palpitations or syncope Resp: Reports: dyspnea GI: Reports: abdominal pain and nausea; Denies: vomiting PFS ED PFSH: Medical History Adjustment insomnia Anxiety and depression Congenital pulmonary valve stenosis Encounter for behavioral health screening Migraine, menstrual Morbid obesity with BMI of 40.0-44.9, adult Pulmonary stenosis TMJ (temporomandibular joint syndrome) Surgical History H/O wisdom tooth extraction Social History Smoking and tobacco status: former smoker Female Reproductive History: Date of last menstrual period: 02/14/21 Physical Exam Const: COMMON NORMALS: no acute distress, average body habitus, patient oriented x3, no limitations, healthy appearing, alert and well nourished HENMT: COMMON NORMALS: normocephalic, atraumatic and moist oral mucous membranes HEAD & SCALP: normocephalic and atraumatic Eye: COMMON NORMALS: Equal, round and reactive pupils present, EOMs intact bilaterally, conjunctivae normal and no scleral icterus CONJUNCTIVA: Yes conjunctivae normal PUPIL: Yes Equal, round and reactive pupils present Neck/C-Spine: COMMON NORMALS: full ROM, supple, no meningeal signs, no JVD and No carotid bruits Chest: COMMONS NORMALS: normal inspection of the chest and normal palpation of entire chest wall Resp: COMMON NORMALS: normal respiratory effort, No retractions, No use of accessory muscles, clear to auscultation bilaterally and percussion normal AUSCULTATION: clear to auscultation bilaterally PERCUSSION: percussion normal Cardio: COMMON NORMALS: no JVD, regular rhythm, S1 normal heart sound present, S2 normal heart sound present, No gallops present (Cardio), No clicks present (Cardio), No murmurs present (Cardio), No rub (Cardio) and Peripheral pulses 2+ throughout RATE: tachycardic RHYTHM: regular rhythm HEART SOUNDS: S1 normal heart sound present and S2 normal heart sound present PERIPHERAL PULSES: Peripheral pulses 2+ throughout GI: COMMON NORMALS: Normal to inspection, nondistended, normoactive bowel sounds present, Soft to palpation, No hepatosplenomegaly present, no masses and no bruits PALPATION: Yes Soft to palpation, Yes Tenderness to palpation present (GI) (epigastric), No Guarding due to palpation present (GI), No Rigid due to palpation, Yes No hepatosplenomegaly present and No Rebound tenderness present Extremity: COMMON NORMALS: normal to inspection, full ROM, capillary refill normal, no calf tenderness and no pedal edema Neuro: COMMON NORMALS: patient oriented x3 SENSORIUM/ORIENTATION: Yes alert MENINGEAL SIGNS: Yes no meningeal signs Skin: COMMON NORMALS: no rashes or lesions noted, no wounds, turgor normal, no jaundice, no petechiae and no mottling GENERAL SKIN EXAM: no rashes or lesions noted and turgor normal Course Reevaluation(s): Reevaluation #1: Family member got in touch with her colleagues who stated that when they tested the compound it tested for methamphetamines, heroin, and kratom (which is a plant based opioid-like/stimulant substance). Side effects are varied including seizures. Discussed my conversation with Dr. Durán. She is in agreement with the plan. Time: 20:55 Consultations: Consultation #1: Discussed the patient with Dr. Durán, hospitalist. She would be ok admitting the patient but we do not have any beds in the hospital currently. She would like us to attempt to transfer the patient and if we are unable to transfer her then we can board her in the ED pending the opening up of an ICU bed in this facility. 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 She got exposed to a powdery substance and shortly after she started feeling ill. She had to events that appeared to be seizures in the emergency department and was given a dose of Ativan and Keppra. She has had no subsequent seizure-like activities. She has had intermittent severe chest pain since. She obtained the most relief when she was given intravenous Benadryl and Solu-Medrol, making me wonder if this may be an allergic reaction to some soaps that she was exposed to. I cannot rule out an exposure to drugs also as a field test of the part resolved signs she sees that includes methamphetamine, heroine and kratom. Because of her overall clinical situation with her intermittent chest pain she is going to be admitted to the hospital versus transfer. We have no current beds in this facility and we are making calls to see if she can be transferred out. If we are unable to transfer her then she will be admitted to this facility. Patient is signed out to Dr. El to assume care. Medical Records: Attestation: I reviewed the patient's medical records. Lab Data: Attestation: I reviewed the patient's lab results. Labs: Lab Results 06/02/21 06/02/21 06/02/21 Range/Units 15:10 15:10 15:10 WBC 12.0 H (4.0-10.0) 10^3/ uL RBC 4.22 (4.1-5.3) 10^6/u L Hgb 11.9 (11.5-15.3) g/dL Hct 37.8 (37.0-47.0) % MCV 89.6 (81-99) fl MCH 28.2 (28.0-34.0) pg MCHC 31.5 (30.0-36.0) g/dL RDW 13.9 (12.1-15.1) % Plt Count 307 (130-400) 10^3/c mm MPV 11.1 H (7.4-10.4) fL Neut % (Auto) 58.6 % Lymph % (Auto) 31.8 % Sequoyah % (Auto) 6.6 % Eos % (Auto) 2.1 % Baso % (Auto) 0.6 % Neut # (Auto) 7.05 (1.8-7.7) 10^3/u L Lymph # (Auto) 3.8 (0.8-4.8) 10^3/u L Sequoyah # (Auto) 0.8 (0.2-0.9) 10^3/u L Eos # (Auto) 0.3 (0.0-0.8) 10^3/u L Baso # (Auto) 0.1 (0.0-0.1) 10^3/u L Nucleated RBC % (a uto) 0 % Nucleated RBCs # 0.0 /100WBC D-Dimer (0-0.59) ug/mIFE U Specimen Type Sample Site ABG pH (7.35-7.45) ABG pCO2 (35-45) mmHg ABG pO2 (80.0-100.0) mmH g ABG HCO3 (22-26) mmol/L ABG O2 Saturation ABG Base Excess (-2.0-2.0) mmol/ L Ferny Test A-a O2 Gradient Hematocrit (37-47) % Hgb O2 Saturation (95-100) % Carboxyhemoglobin (0.4-20.1) %THgb Methemoglobin (0.4-1.5) % Total Hemoglobin (12-16) g/dL Ionized Calcium (1.1-1.4) mmol/L O2 Delivery Device O2 Liters/Min % FiO2 % Automatic Outsole Cutter ID Sodium Cancelled Potassium Cancelled Chloride Cancelled Carbon Dioxide Cancelled Anion Gap Cancelled BUN Cancelled Creatinine Cancelled GFR Calculation Cancelled Glucose Cancelled POC Glucose (70-110) mg/dL Calculated Osmolal ity Cancelled Lactic Acid (Sepsi s) (0.5-2.2) mmol/L Lactate (0.5-2.2) mmol/L Calcium Cancelled Total Bilirubin Cancelled AST Cancelled ALT Cancelled Alkaline Phosphata se Cancelled Creatine Kinase Cancelled Troponin T Baselin e Cancelled Troponin T 120 Min [place] (0-10) ng/L Delta Troponin T (0-10) ABS# C-Reactive Protein Cancelled Total Protein Cancelled Albumin Cancelled Globulin Cancelled Lipase Cancelled HCG, Qual (Negative) Urine Color (Yellow) Urine Appearance (CLEAR) Urine pH (5-7) Ur Specific Gravit y (1.005-1.030) Urine Protein (Negative) Urine Glucose (UA) (Normal) Urine Ketones (Negative) Urine Blood (Negative) Urine Nitrate (Negative) Urine Bilirubin (Negative) Prot Sulfosalicyli c Acd (Negative) Urine Urobilinogen (Negative) mg/dL Ur Leukocyte Myrna ase (Negative) Urine Opiates Scre en (Negative) ng/mL Ur Barbiturates Sc reen (Negative) ng/mL Ur Phencyclidine S crn (Negative) ng/mL Ur Amphetamines Sc reen (Negative) ng/mL U Benzodiazepines Scrn (Negative) ng/mL Urine Cocaine Scre en (Negative) ng/mL U Marijuana (THC) Screen (Negative) ng/mL 06/02/21 06/02/21 06/02/21 Range/Units 15:15 16:11 16:11 WBC (4.0-10.0) 10^3/ uL RBC (4.1-5.3) 10^6/u L Hgb (11.5-15.3) g/dL Hct (37.0-47.0) % MCV (81-99) fl MCH (28.0-34.0) pg MCHC (30.0-36.0) g/dL RDW (12.1-15.1) % Plt Count (130-400) 10^3/c mm MPV (7.4-10.4) fL Neut % (Auto) % Lymph % (Auto) % Sequoyah % (Auto) % Eos % (Auto) % Baso % (Auto) % Neut # (Auto) (1.8-7.7) 10^3/u L Lymph # (Auto) (0.8-4.8) 10^3/u L Sequoyah # (Auto) (0.2-0.9) 10^3/u L Eos # (Auto) (0.0-0.8) 10^3/u L Baso # (Auto) (0.0-0.1) 10^3/u L Nucleated RBC % (a uto) % Nucleated RBCs # /100WBC D-Dimer (0-0.59) ug/mIFE U Specimen Type Sample Site ABG pH (7.35-7.45) ABG pCO2 (35-45) mmHg ABG pO2 (80.0-100.0) mmH g ABG HCO3 (22-26) mmol/L ABG O2 Saturation ABG Base Excess (-2.0-2.0) mmol/ L Ferny Test A-a O2 Gradient Hematocrit (37-47) % Hgb O2 Saturation (95-100) % Carboxyhemoglobin (0.4-20.1) %THgb Methemoglobin (0.4-1.5) % Total Hemoglobin (12-16) g/dL Ionized Calcium (1.1-1.4) mmol/L O2 Delivery Device O2 Liters/Min % FiO2 % Automatic Outsole Cutter ID Sodium 137 Potassium 3.5 Chloride 102 Carbon Dioxide 21 L Anion Gap 17.5 BUN 9 Creatinine 0.9 GFR Calculation 77.6 L Glucose 83 POC Glucose 113 H (70-110) mg/dL Calculated Osmolal ity 282 L Lactic Acid (Sepsi s) (0.5-2.2) mmol/L Lactate (0.5-2.2) mmol/L Calcium 9.0 Total Bilirubin 0.2 AST 12 ALT 11 Alkaline Phosphata se 99 Creatine Kinase 83 Troponin T Baselin e 7 Troponin T 120 Min [place] (0-10) ng/L Delta Troponin T (0-10) ABS# C-Reactive Protein 8.2 H Total Protein 6.4 L Albumin 4.1 Globulin 2.3 Lipase 21 HCG, Qual (Negative) Urine Color (Yellow) Urine Appearance (CLEAR) Urine pH (5-7) Ur Specific Gravit y (1.005-1.030) Urine Protein (Negative) Urine Glucose (UA) (Normal) Urine Ketones (Negative) Urine Blood (Negative) Urine Nitrate (Negative) Urine Bilirubin (Negative) Prot Sulfosalicyli c Acd (Negative) Urine Urobilinogen (Negative) mg/dL Ur Leukocyte Myrna ase (Negative) Urine Opiates Scre en (Negative) ng/mL Ur Barbiturates Sc reen (Negative) ng/mL Ur Phencyclidine S crn (Negative) ng/mL Ur Amphetamines Sc reen (Negative) ng/mL U Benzodiazepines Scrn (Negative) ng/mL Urine Cocaine Scre en (Negative) ng/mL U Marijuana (THC) Screen (Negative) ng/mL 06/02/21 06/02/21 06/02/21 Range/Units 16:20 16:44 17:00 WBC (4.0-10.0) 10^3/ uL RBC (4.1-5.3) 10^6/u L Hgb (11.5-15.3) g/dL Hct (37.0-47.0) % MCV (81-99) fl MCH (28.0-34.0) pg MCHC (30.0-36.0) g/dL RDW (12.1-15.1) % Plt Count (130-400) 10^3/c mm MPV (7.4-10.4) fL Neut % (Auto) % Lymph % (Auto) % Sequoyah % (Auto) % Eos % (Auto) % Baso % (Auto) % Neut # (Auto) (1.8-7.7) 10^3/u L Lymph # (Auto) (0.8-4.8) 10^3/u L Sequoyah # (Auto) (0.2-0.9) 10^3/u L Eos # (Auto) (0.0-0.8) 10^3/u L Baso # (Auto) (0.0-0.1) 10^3/u L Nucleated RBC % (a uto) % Nucleated RBCs # /100WBC D-Dimer (0-0.59) ug/mIFE U Specimen Type Arterial Sample Site Radial, right ABG pH 7.56 H (7.35-7.45) ABG pCO2 24.5 L (35-45) mmHg ABG pO2 120.0 H (80.0-100.0) mmH g ABG HCO3 22.0 (22-26) mmol/L ABG O2 Saturation 99.7 ABG Base Excess 0.9 (-2.0-2.0) mmol/ L Ferny Test Pos A-a O2 Gradient Not Reportable Hematocrit 33.5 L (37-47) % Hgb O2 Saturation 98.2 (95-100) % Carboxyhemoglobin 0.6 (0.4-20.1) %THgb Methemoglobin 0.9 (0.4-1.5) % Total Hemoglobin 10.9 L (12-16) g/dL Ionized Calcium 1.1 (1.1-1.4) mmol/L O2 Delivery Device Nc O2 Liters/Min 2.0 % FiO2 28.0 % Automatic Outsole Cutter ID jmn Sodium 141.0 Potassium 3.5 Chloride Carbon Dioxide Anion Gap BUN Creatinine GFR Calculation Glucose 83.0 POC Glucose (70-110) mg/dL Calculated Osmolal ity Lactic Acid (Sepsi s) (0.5-2.2) mmol/L Lactate 1.4 (0.5-2.2) mmol/L Calcium Total Bilirubin AST ALT Alkaline Phosphata se Creatine Kinase Troponin T Baselin e Troponin T 120 Min [place] (0-10) ng/L Delta Troponin T (0-10) ABS# C-Reactive Protein Total Protein Albumin Globulin Lipase HCG, Qual (Negative) Urine Color (Yellow) Urine Appearance (CLEAR) Urine pH (5-7) Ur Specific Gravit y (1.005-1.030) Urine Protein (Negative) Urine Glucose (UA) (Normal) Urine Ketones (Negative) Urine Blood (Negative) Urine Nitrate (Negative) Urine Bilirubin (Negative) Prot Sulfosalicyli c Acd (Negative) Urine Urobilinogen (Negative) mg/dL Ur Leukocyte Myrna ase (Negative) Urine Opiates Scre en Positive H (Negative) ng/mL Ur Barbiturates Sc reen Negative (Negative) ng/mL Ur Phencyclidine S crn Negative (Negative) ng/mL Ur Amphetamines Sc reen Negative (Negative) ng/mL U Benzodiazepines Scrn Negative (Negative) ng/mL Urine Cocaine Scre en Negative (Negative) ng/mL U Marijuana (THC) Screen Negative (Negative) ng/mL 06/02/21 06/02/21 06/02/21 Range/Units 17:00 18:00 18:00 WBC (4.0-10.0) 10^3/ uL RBC (4.1-5.3) 10^6/u L Hgb (11.5-15.3) g/dL Hct (37.0-47.0) % MCV (81-99) fl MCH (28.0-34.0) pg MCHC (30.0-36.0) g/dL RDW (12.1-15.1) % Plt Count (130-400) 10^3/c mm MPV (7.4-10.4) fL Neut % (Auto) % Lymph % (Auto) % Sequoyah % (Auto) % Eos % (Auto) % Baso % (Auto) % Neut # (Auto) (1.8-7.7) 10^3/u L Lymph # (Auto) (0.8-4.8) 10^3/u L Sequoyah # (Auto) (0.2-0.9) 10^3/u L Eos # (Auto) (0.0-0.8) 10^3/u L Baso # (Auto) (0.0-0.1) 10^3/u L Nucleated RBC % (a uto) % Nucleated RBCs # /100WBC D-Dimer 0.36 (0-0.59) ug/mIFE U Specimen Type Sample Site ABG pH (7.35-7.45) ABG pCO2 (35-45) mmHg ABG pO2 (80.0-100.0) mmH g ABG HCO3 (22-26) mmol/L ABG O2 Saturation ABG Base Excess (-2.0-2.0) mmol/ L Ferny Test A-a O2 Gradient Hematocrit (37-47) % Hgb O2 Saturation (95-100) % Carboxyhemoglobin (0.4-20.1) %THgb Methemoglobin (0.4-1.5) % Total Hemoglobin (12-16) g/dL Ionized Calcium (1.1-1.4) mmol/L O2 Delivery Device O2 Liters/Min % FiO2 % Automatic Outsole Cutter ID Sodium Potassium Chloride Carbon Dioxide Anion Gap BUN Creatinine GFR Calculation Glucose POC Glucose (70-110) mg/dL Calculated Osmolal ity Lactic Acid (Sepsi s) (0.5-2.2) mmol/L Lactate (0.5-2.2) mmol/L Calcium Total Bilirubin AST ALT Alkaline Phosphata se Creatine Kinase Troponin T Baselin e Troponin T 120 Min [place] (0-10) ng/L Delta Troponin T (0-10) ABS# C-Reactive Protein Total Protein Albumin Globulin Lipase HCG, Qual Negative (Negative) Urine Color Yellow (Yellow) Urine Appearance Clear (CLEAR) Urine pH 8 H (5-7) Ur Specific Gravit y 1.010 (1.005-1.030) Urine Protein Neg (Negative) Urine Glucose (UA) Norm (Normal) Urine Ketones Negative (Negative) Urine Blood Neg (Negative) Urine Nitrate Negative (Negative) Urine Bilirubin Neg (Negative) Prot Sulfosalicyli c Acd Negative (Negative) Urine Urobilinogen Norm (Negative) mg/dL Ur Leukocyte Myrna ase Negative (Negative) Urine Opiates Scre en (Negative) ng/mL Ur Barbiturates Sc reen (Negative) ng/mL Ur Phencyclidine S crn (Negative) ng/mL Ur Amphetamines Sc reen (Negative) ng/mL U Benzodiazepines Scrn (Negative) ng/mL Urine Cocaine Scre en (Negative) ng/mL U Marijuana (THC) Screen (Negative) ng/mL 06/02/21 06/02/21 Range/Units 19:14 19:14 WBC (4.0-10.0) 10^3/ uL RBC (4.1-5.3) 10^6/u L Hgb (11.5-15.3) g/dL Hct (37.0-47.0) % MCV (81-99) fl MCH (28.0-34.0) pg MCHC (30.0-36.0) g/dL RDW (12.1-15.1) % Plt Count (130-400) 10^3/c mm MPV (7.4-10.4) fL Neut % (Auto) % Lymph % (Auto) % Sequoyah % (Auto) % Eos % (Auto) % Baso % (Auto) % Neut # (Auto) (1.8-7.7) 10^3/u L Lymph # (Auto) (0.8-4.8) 10^3/u L Sequoyah # (Auto) (0.2-0.9) 10^3/u L Eos # (Auto) (0.0-0.8) 10^3/u L Baso # (Auto) (0.0-0.1) 10^3/u L Nucleated RBC % (a uto) % Nucleated RBCs # /100WBC D-Dimer (0-0.59) ug/mIFE U Specimen Type Sample Site ABG pH (7.35-7.45) ABG pCO2 (35-45) mmHg ABG pO2 (80.0-100.0) mmH g ABG HCO3 (22-26) mmol/L ABG O2 Saturation ABG Base Excess (-2.0-2.0) mmol/ L Ferny Test A-a O2 Gradient Hematocrit (37-47) % Hgb O2 Saturation (95-100) % Carboxyhemoglobin (0.4-20.1) %THgb Methemoglobin (0.4-1.5) % Total Hemoglobin (12-16) g/dL Ionized Calcium (1.1-1.4) mmol/L O2 Delivery Device O2 Liters/Min % FiO2 % Automatic Outsole Cutter ID Sodium Potassium Chloride Carbon Dioxide Anion Gap BUN Creatinine GFR Calculation Glucose POC Glucose (70-110) mg/dL Calculated Osmolal ity Lactic Acid (Sepsi s) 0.8 (0.5-2.2) mmol/L Lactate (0.5-2.2) mmol/L Calcium Total Bilirubin AST ALT Alkaline Phosphata se Creatine Kinase Troponin T Baselin e Troponin T 120 Min [place] 6.64 (0-10) ng/L Delta Troponin T -0.36 L (0-10) ABS# C-Reactive Protein Total Protein Albumin Globulin Lipase HCG, Qual (Negative) Urine Color (Yellow) Urine Appearance (CLEAR) Urine pH (5-7) Ur Specific Gravit y (1.005-1.030) Urine Protein (Negative) Urine Glucose (UA) (Normal) Urine Ketones (Negative) Urine Blood (Negative) Urine Nitrate (Negative) Urine Bilirubin (Negative) Prot Sulfosalicyli c Acd (Negative) Urine Urobilinogen (Negative) mg/dL Ur Leukocyte Myrna ase (Negative) Urine Opiates Scre en (Negative) ng/mL Ur Barbiturates Sc reen (Negative) ng/mL Ur Phencyclidine S crn (Negative) ng/mL Ur Amphetamines Sc reen (Negative) ng/mL U Benzodiazepines Scrn (Negative) ng/mL Urine Cocaine Scre en (Negative) ng/mL U Marijuana (THC) Screen (Negative) ng/mL Imaging Data^: Other CT: Attestation: I personally reviewed and interpreted this imaging study as follows: Radiologist's impression: [employer] [id number] Scan ReportSigned Patient: Fazal Gutiérrez #: [id number]: 2000Acct#:[id number]/Sex: FADM Date: 06/02/21Loc: ERRoom/Bed:Attending Dr: Ordering Provider/Ordering MD: Fredi Isidro MD, [facility] Date of Service: 06/02/21 Procedure(s): CT chest abd pel w con* Accession Number(s): [id number] Report Number: [id number] PROCEDURE INFORMATION: Exam: CT Chest With Contrast; Diagnostic Exam date and time: 06/02/2021 8:15 PM Age: 21 years old Clinical indication: Abdominal pain; Localized; Chest pressure; Prior surgery; Surgery type: Csection; Patient HX: Chest and upper abd pain. ; Additional info: Chest pain, upper abdominal pain TECHNIQUE: Imaging protocol: Diagnostic computed tomography of the chest with contrast. Sagittal and coronal reformatted images were created and reviewed. Radiation optimization: All CT scans at this facility use at least one of these dose optimization techniques: automated exposure control; mA and/or kV adjustment per patient size (includes targeted exams where dose is matched to clinical indication); or iterative reconstruction. Contrast material: OMNI 300; Contrast volume: 95 ml; Contrast route: INTRAVENOUS (IV); COMPARISON: CR (CHEST, ) 06/02/2021 4:57 PM RADIATION DOSE METRICS: Total DLP (mGy-cm): 2918.11 FINDINGS: Lungs: Tracheobronchial structures are patent. Lungs are clear bilaterally. No pulmonary parenchymal nodules or masses. Pleural spaces: No pneumothorax. No pleural effusion. Heart: No cardiomegaly. No pericardial effusion. Mediastinal space: The esophagus is unremarkable. No mediastinal hematoma. No pneumomediastinum. Pulmonary arteries: Pulmonary arteries are unremarkable. Aorta: No evidence for aortic aneurysm or aortic dissection. Veins: Pulmonary veins are unremarkable. Lymph nodes: No lymphadenopathy. Bones/joints: No acute fracture. No dislocation. Soft tissues: No acute abnormality in the extrathoracic soft tissues. Patient has bilateral nipple piercings. IMPRESSION: 1. No acute cardiopulmonary process. 2. Incidental/nonacute findings are listed in the report. PROCEDURE INFORMATION: Exam: CT Abdomen And Pelvis With Contrast Exam date and time: 06/02/2021 8:15 PM Age: 21 years old Clinical indication: Abdominal pain; Localized; Chest pressure; Prior surgery; Surgery type: Csection; Patient HX: Chest and upper abd pain. ; Additional info: Chest pain, upper abdominal pain TECHNIQUE: Imaging protocol: Computed tomography of the abdomen and pelvis with contrast. Sagittal and coronal reformatted images were created and reviewed. Radiation optimization: All CT scans at this facility use at least one of these dose optimization techniques: automated exposure control; mA and/or kV adjustment per patient size (includes targeted exams where dose is matched to clinical indication); or iterative reconstruction. Contrast material: OMNI 300; Contrast volume: 95 ml; Contrast route: INTRAVENOUS (IV); COMPARISON: CR (CHEST, ) 06/02/2021 4:57 PM RADIATION DOSE METRICS: Total DLP (mGy-cm): 2918.11 FINDINGS: Liver: The liver is unremarkable. Gallbladder and bile ducts: The gallbladder is unremarkable. No biliary ductal dilatation. Pancreas: The pancreas is unremarkable. No pancreatic ductal dilatation. Spleen: The spleen is unremarkable. Adrenal glands: The right and left adrenal glands are unremarkable. Kidneys and ureters: The right and left kidneys are unremarkable. The right and left ureters are unremarkable. Stomach and bowel: No obstruction. No mucosal thickening. Appendix: The appendix is visualized and is unremarkable. No findings to suggest acute appendicitis. Intraperitoneal space: No free intraperitoneal air. No ascites. No loculated fluid collections to suggest an abscess. Vasculature: No evidence for aortic aneurysm or aortic dissection. Hepatic veins, portal veins, splenic vein, and SMV are patent. Lymph nodes: No lymphadenopathy. Urinary bladder: The bladder is unremarkable. Reproductive: There is an IUD in the uterus. The uterus is otherwise unremarkable. The right and left ovaries are unremarkable. Bones/joints: Bilateral pars defects at L5-S1. Soft tissues: No acute abnormality in the extra-abdominal soft tissues. CT/CT chest abd pel w con* IMPRESSION: 1. No acute abnormality in the abdomen or pelvis. 2. Bilateral pars defects at L5-S1. 3. There is an IUD in the uterus. Radiation Dose CTDIVOL = (mGy): DLP = 2918.11~2918.11 (mGy-cm) Dictated By:Rohini Azevedo MDSigned By:Rohini Azevedo MDSigned Date/Time:06/02/21D/ 01 CT Head: Attestation: I personally reviewed and interpreted this imaging study as follows: Radiologist's impression: [address] [id number] Scan ReportSigned Patient: Fazal Gutiérrez #: [id number]: 2000Acct#:[id number]/Sex: 21 / FADM Date: 06/02/21Loc: ERRoom/Bed:Attending Dr: Ordering Provider/Ordering MD: Fredi Isidro MD, [facility] Date of Service: 06/02/21 Procedure(s): CT head wo con* [id number] Accession Number(s): [id number] Report Number: [id number] PROCEDURE INFORMATION: Exam: CT Head Without Contrast Exam date and time: 06/02/2021 5:03 PM Age: 21 years old Clinical indication: Altered mental status/memory loss; Confusion or disorientation; Additional info: Headache AMS TECHNIQUE: Imaging protocol: Computed tomography of the head without contrast. Sagittal and coronal reformatted images were created and reviewed. Radiation optimization: All CT scans at this facility use at least one of these dose optimization techniques: automated exposure control; mA and/or kV adjustment per patient size (includes targeted exams where dose is matched to clinical indication); or iterative reconstruction. COMPARISON: No relevant prior studies available. RADIATION DOSE METRICS: Total DLP (mGy-cm): 991.84 FINDINGS: Brain: No acute intracranial hemorrhage. No acute infarct. No intra-axial or extra-axial masses. Mooney-white matter differentiation is preserved. No cerebral edema. No extra-axial fluid collections. No midline shift. The cerebellar tonsils extend just below the level of the foramen magnum. Cerebral ventricles: No hydrocephalus. Paranasal sinuses: Visualized paranasal sinuses are clear. Mastoid air cells: Mastoid air cells are clear bilaterally. Orbital cavity: Globes and lenses, extraocular muscles, and optic nerves are intact bilaterally. No acute intraorbital abnormality. Bones/joints: Marked left nasal septal deviation. Soft tissues: No acute abnormality of the extracranial soft tissues. CT/CT head wo con* [id number] IMPRESSION: 1. No acute abnormality of the brain. 2. Low lying cerebellar tonsils. 3. Incidental/nonacute findings are listed in the report. Radiation Dose CTDIVOL = (mGy): DLP = 991.84 (mGy-cm) Dictated By:Rohini Azevedo MDSigned By:Rohini Azevedo MDSigned Date/Time:06/02/211757DD/ 55 CXR: Attestation: I personally reviewed and interpreted this imaging study as follows: Radiologist's impression: [address] [id number] ReportSigned Patient: Fazal Gutiérrez #: [id number]: [id number]#:[id number]/Sex: 21 / FADM Date: 06/02/21Loc: ERRoom/Bed:Attending Dr: Ordering Provider/Ordering MD: Fredi Isidro MD, [facility] Date of Service: 06/02/21 Procedure(s): XR chest 1V portable [id number] Accession Number(s): [id number] Report Number: [id number] PROCEDURE INFORMATION: Exam: XR Chest Exam date and time: 06/02/2021 3:22 PM Age: 21 years old Clinical indication: Sternal or substernal pain; Additional info: Cp, difficulty breathing TECHNIQUE: Imaging protocol: XR of the chest. Views: 1 view. COMPARISON: [facility] Chest 2 views 11/01/2018 11:59 AM FINDINGS: Lungs: Decreased inspiration, otherwise the lungs are clear. Pleural spaces: No pleural effusion. No pneumothorax. Heart/Mediastinum: The cardiac silhouette is mildly enlarged. This may be due at least in part to decreased inspiration and AP technique. Mediastinal contours are unremarkable. Bones/joints: Unremarkable for age. Soft tissues: Patient has bilateral nipple piercings. XR/XR chest 1V portable [id number] IMPRESSION: 1. Decreased inspiration, otherwise the lungs are clear. 2. The cardiac silhouette is mildly enlarged. This may be due at least in part to decreased inspiration and AP technique. 3. Incidental/nonacute findings are listed in the report. Dictated By:Rohini Azevedo MDSigned By:Rohini Azevedo MDSigned Date/Time:06/02/21 1734DD/ 1732 EKG Data^: EKG 1: Attestation: I personally reviewed and interpreted this EKG as follows: EKG interpretation date: 06/02/21 EKG interpretation time: 15:24 Prior EKG tracings: not available for review Interpretation: Sinus tachycardia. Heart rate 112 bpm. Q waves in leads II, III and aVF. Q waves in V5 and V6. No ST changes. EKG 2: Attestation: I personally reviewed and interpreted this EKG as follows: EKG interpretation date: 06/02/21 EKG interpretation time: 17:22 Prior EKG tracings: available for review Interpretation: Sinus rhythm. Heart rate [address] changes. Q wave amplitude decreased when compared with earlier. EKG 3: Attestation: I personally reviewed and interpreted this EKG as follows: EKG interpretation date: 06/02/21 EKG interpretation time: 22:50 Prior EKG tracings: available for review Interpretation: Sinus rhythm. Heart rate [address] changes. No significant change compared to the last EKG. Discharge Plan Discharge Patient Disposition: Admitted As Inpatient Admit Provider: Skyla Durán Clinical Impression: Seizure Condition: Stable Coding Level of Care Code ED Visiting Teacher for Chg Fwd Exam Comprehensive Documented by User: Misa El MD 06/03/21 01:58 HPI - Chest Pain General: Chief Complaint: ER Hold Stated Complaint: CHEST PAIN/ AMS Time Seen by Provider: 06/02/21 15:05 PFSH ED PFSH: Medical History Adjustment insomnia Anxiety and depression Congenital pulmonary valve stenosis Encounter for behavioral health screening Migraine, menstrual Morbid obesity with BMI of 40.0-44.9, adult Pulmonary stenosis TMJ (temporomandibular joint syndrome) Surgical History H/O wisdom tooth extraction Social History Smoking and tobacco status: former smoker Course Vital Signs: Vital signs: Vital Signs Pulse Rate 90 06/03/21 09:31 Respiratory Rate 39 H 06/03/21 09:47 Blood Pressure 129/60 06/03/21 08:06 Pulse Oximetry 94 06/03/21 09:31 MDM - Chest Pain MDM Narrative: Medical decision making narrative: Patient presents here with a possible seizure versus reaction to a drug. 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 She feels improved here after Ativan spoke to hospitalist and will admit for observation. Patient's work-up here is otherwise normal. Lab Data: Labs: Lab Results 06/02/21 06/02/21 06/02/21 Range/Units 15:10 15:10 15:10 WBC 12.0 H (4.0-10.0) 10^3/ uL RBC 4.22 (4.1-5.3) 10^6/u L Hgb 11.9 (11.5-15.3) g/dL Hct 37.8 (37.0-47.0) % MCV 89.6 (81-99) fl MCH 28.2 (28.0-34.0) pg MCHC 31.5 (30.0-36.0) g/dL RDW 13.9 (12.1-15.1) % Plt Count 307 (130-400) 10^3/c mm MPV 11.1 H (7.4-10.4) fL Neut % (Auto) 58.6 % Lymph % (Auto) 31.8 % Sequoyah % (Auto) 6.6 % Eos % (Auto) 2.1 % Baso % (Auto) 0.6 % Neut # (Auto) 7.05 (1.8-7.7) 10^3/u L Lymph # (Auto) 3.8 (0.8-4.8) 10^3/u L Sequoyah # (Auto) 0.8 (0.2-0.9) 10^3/u L Eos # (Auto) 0.3 (0.0-0.8) 10^3/u L Baso # (Auto) 0.1 (0.0-0.1) 10^3/u L Nucleated RBC % (a uto) 0 % Nucleated RBCs # 0.0 /100WBC D-Dimer (0-0.59) ug/mIFE U Specimen Type Sample Site ABG pH (7.35-7.45) ABG pCO2 (35-45) mmHg ABG pO2 (80.0-100.0) mmH g ABG HCO3 (22-26) mmol/L ABG O2 Saturation ABG Base Excess (-2.0-2.0) mmol/ L Ferny Test A-a O2 Gradient Hematocrit (37-47) % Hgb O2 Saturation (95-100) % Carboxyhemoglobin (0.4-20.1) %THgb Methemoglobin (0.4-1.5) % Total Hemoglobin (12-16) g/dL Ionized Calcium (1.1-1.4) mmol/L O2 Delivery Device O2 Liters/Min % FiO2 % Automatic Outsole Cutter ID Sodium Cancelled Potassium Cancelled Chloride Cancelled Carbon Dioxide Cancelled Anion Gap Cancelled BUN Cancelled Creatinine Cancelled GFR Calculation Cancelled Glucose Cancelled POC Glucose (70-110) mg/dL Calculated Osmolal ity Cancelled Lactic Acid (Sepsi s) (0.5-2.2) mmol/L Lactate (0.5-2.2) mmol/L Calcium Cancelled Total Bilirubin Cancelled AST Cancelled ALT Cancelled Alkaline Phosphata se Cancelled Creatine Kinase Cancelled Troponin T Baselin e Cancelled Troponin T 120 Min [place] (0-10) ng/L Delta Troponin T (0-10) ABS# C-Reactive Protein Cancelled Total Protein Cancelled Albumin Cancelled Globulin Cancelled Lipase Cancelled HCG, Qual (Negative) Urine Color (Yellow) Urine Appearance (CLEAR) Urine pH (5-7) Ur Specific Gravit y (1.005-1.030) Urine Protein (Negative) Urine Glucose (UA) (Normal) Urine Ketones (Negative) Urine Blood (Negative) Urine Nitrate (Negative) Urine Bilirubin (Negative) Prot Sulfosalicyli c Acd (Negative) Urine Urobilinogen (Negative) mg/dL Ur Leukocyte Myrna ase (Negative) Urine Opiates Scre en (Negative) ng/mL Ur Barbiturates Sc reen (Negative) ng/mL Ur Phencyclidine S crn (Negative) ng/mL Ur Amphetamines Sc reen (Negative) ng/mL U Benzodiazepines Scrn (Negative) ng/mL Urine Cocaine Scre en (Negative) ng/mL U Marijuana (THC) Screen (Negative) ng/mL 06/02/21 06/02/21 06/02/21 Range/Units 15:15 16:11 16:11 WBC (4.0-10.0) 10^3/ uL RBC (4.1-5.3) 10^6/u L Hgb (11.5-15.3) g/dL Hct (37.0-47.0) % MCV (81-99) fl MCH (28.0-34.0) pg MCHC (30.0-36.0) g/dL RDW (12.1-15.1) % Plt Count (130-400) 10^3/c mm MPV (7.4-10.4) fL Neut % (Auto) % Lymph % (Auto) % Sequoyah % (Auto) % Eos % (Auto) % Baso % (Auto) % Neut # (Auto) (1.8-7.7) 10^3/u L Lymph # (Auto) (0.8-4.8) 10^3/u L Sequoyah # (Auto) (0.2-0.9) 10^3/u L Eos # (Auto) (0.0-0.8) 10^3/u L Baso # (Auto) (0.0-0.1) 10^3/u L Nucleated RBC % (a uto) % Nucleated RBCs # /100WBC D-Dimer (0-0.59) ug/mIFE U Specimen Type Sample Site ABG pH (7.35-7.45) ABG pCO2 (35-45) mmHg ABG pO2 (80.0-100.0) mmH g ABG HCO3 (22-26) mmol/L ABG O2 Saturation ABG Base Excess (-2.0-2.0) mmol/ L Ferny Test A-a O2 Gradient Hematocrit (37-47) % Hgb O2 Saturation (95-100) % Carboxyhemoglobin (0.4-20.1) %THgb Methemoglobin (0.4-1.5) % Total Hemoglobin (12-16) g/dL Ionized Calcium (1.1-1.4) mmol/L O2 Delivery Device O2 Liters/Min % FiO2 % Automatic Outsole Cutter ID Sodium 137 Potassium 3.5 Chloride 102 Carbon Dioxide 21 L Anion Gap 17.5 BUN 9 Creatinine 0.9 GFR Calculation 77.6 L Glucose 83 POC Glucose 113 H (70-110) mg/dL Calculated Osmolal ity 282 L Lactic Acid (Sepsi s) (0.5-2.2) mmol/L Lactate (0.5-2.2) mmol/L Calcium 9.0 Total Bilirubin 0.2 AST 12 ALT 11 Alkaline Phosphata se 99 Creatine Kinase 83 Troponin T Baselin e 7 Troponin T 120 Min [place] (0-10) ng/L Delta Troponin T (0-10) ABS# C-Reactive Protein 8.2 H Total Protein 6.4 L Albumin 4.1 Globulin 2.3 Lipase 21 HCG, Qual (Negative) Urine Color (Yellow) Urine Appearance (CLEAR) Urine pH (5-7) Ur Specific Gravit y (1.005-1.030) Urine Protein (Negative) Urine Glucose (UA) (Normal) Urine Ketones (Negative) Urine Blood (Negative) Urine Nitrate (Negative) Urine Bilirubin (Negative) Prot Sulfosalicyli c Acd (Negative) Urine Urobilinogen (Negative) mg/dL Ur Leukocyte Myrna ase (Negative) Urine Opiates Scre en (Negative) ng/mL Ur Barbiturates Sc reen (Negative) ng/mL Ur Phencyclidine S crn (Negative) ng/mL Ur Amphetamines Sc reen (Negative) ng/mL U Benzodiazepines Scrn (Negative) ng/mL Urine Cocaine Scre en (Negative) ng/mL U Marijuana (THC) Screen (Negative) ng/mL 06/02/21 06/02/21 06/02/21 Range/Units 16:20 16:44 17:00 WBC (4.0-10.0) 10^3/ uL RBC (4.1-5.3) 10^6/u L Hgb (11.5-15.3) g/dL Hct (37.0-47.0) % MCV (81-99) fl MCH (28.0-34.0) pg MCHC (30.0-36.0) g/dL RDW (12.1-15.1) % Plt Count (130-400) 10^3/c mm MPV (7.4-10.4) fL Neut % (Auto) % Lymph % (Auto) % Sequoyah % (Auto) % Eos % (Auto) % Baso % (Auto) % Neut # (Auto) (1.8-7.7) 10^3/u L Lymph # (Auto) (0.8-4.8) 10^3/u L Sequoyah # (Auto) (0.2-0.9) 10^3/u L Eos # (Auto) (0.0-0.8) 10^3/u L Baso # (Auto) (0.0-0.1) 10^3/u L Nucleated RBC % (a uto) % Nucleated RBCs # /100WBC D-Dimer (0-0.59) ug/mIFE U Specimen Type Arterial Sample Site Radial, right ABG pH 7.56 H (7.35-7.45) ABG pCO2 24.5 L (35-45) mmHg ABG pO2 120.0 H (80.0-100.0) mmH g ABG HCO3 22.0 (22-26) mmol/L ABG O2 Saturation 99.7 ABG Base Excess 0.9 (-2.0-2.0) mmol/ L Ferny Test Pos A-a O2 Gradient Not Reportable Hematocrit 33.5 L (37-47) % Hgb O2 Saturation 98.2 (95-100) % Carboxyhemoglobin 0.6 (0.4-20.1) %THgb Methemoglobin 0.9 (0.4-1.5) % Total Hemoglobin 10.9 L (12-16) g/dL Ionized Calcium 1.1 (1.1-1.4) mmol/L O2 Delivery Device Nc O2 Liters/Min 2.0 % FiO2 28.0 % Automatic Outsole Cutter ID jmn Sodium 141.0 Potassium 3.5 Chloride Carbon Dioxide Anion Gap BUN Creatinine GFR Calculation Glucose 83.0 POC Glucose (70-110) mg/dL Calculated Osmolal ity Lactic Acid (Sepsi s) (0.5-2.2) mmol/L Lactate 1.4 (0.5-2.2) mmol/L Calcium Total Bilirubin AST ALT Alkaline Phosphata se Creatine Kinase Troponin T Baselin e Troponin T 120 Min [place] (0-10) ng/L Delta Troponin T (0-10) ABS# C-Reactive Protein Total Protein Albumin Globulin Lipase HCG, Qual (Negative) Urine Color (Yellow) Urine Appearance (CLEAR) Urine pH (5-7) Ur Specific Gravit y (1.005-1.030) Urine Protein (Negative) Urine Glucose (UA) (Normal) Urine Ketones (Negative) Urine Blood (Negative) Urine Nitrate (Negative) Urine Bilirubin (Negative) Prot Sulfosalicyli c Acd (Negative) Urine Urobilinogen (Negative) mg/dL Ur Leukocyte Myrna ase (Negative) Urine Opiates Scre en Positive H (Negative) ng/mL Ur Barbiturates Sc reen Negative (Negative) ng/mL Ur Phencyclidine S crn Negative (Negative) ng/mL Ur Amphetamines Sc reen Negative (Negative) ng/mL U Benzodiazepines Scrn Negative (Negative) ng/mL Urine Cocaine Scre en Negative (Negative) ng/mL U Marijuana (THC) Screen Negative (Negative) ng/mL 06/02/21 06/02/21 06/02/21 Range/Units 17:00 18:00 18:00 WBC (4.0-10.0) 10^3/ uL RBC (4.1-5.3) 10^6/u L Hgb (11.5-15.3) g/dL Hct (37.0-47.0) % MCV (81-99) fl MCH (28.0-34.0) pg MCHC (30.0-36.0) g/dL RDW (12.1-15.1) % Plt Count (130-400) 10^3/c mm MPV (7.4-10.4) fL Neut % (Auto) % Lymph % (Auto) % Sequoyah % (Auto) % Eos % (Auto) % Baso % (Auto) % Neut # (Auto) (1.8-7.7) 10^3/u L Lymph # (Auto) (0.8-4.8) 10^3/u L Sequoyah # (Auto) (0.2-0.9) 10^3/u L Eos # (Auto) (0.0-0.8) 10^3/u L Baso # (Auto) (0.0-0.1) 10^3/u L Nucleated RBC % (a uto) % Nucleated RBCs # /100WBC D-Dimer 0.36 (0-0.59) ug/mIFE U Specimen Type Sample Site ABG pH (7.35-7.45) ABG pCO2 (35-45) mmHg ABG pO2 (80.0-100.0) mmH g ABG HCO3 (22-26) mmol/L ABG O2 Saturation ABG Base Excess (-2.0-2.0) mmol/ L Ferny Test A-a O2 Gradient Hematocrit (37-47) % Hgb O2 Saturation (95-100) % Carboxyhemoglobin (0.4-20.1) %THgb Methemoglobin (0.4-1.5) % Total Hemoglobin (12-16) g/dL Ionized Calcium (1.1-1.4) mmol/L O2 Delivery Device O2 Liters/Min % FiO2 % Automatic Outsole Cutter ID Sodium Potassium Chloride Carbon Dioxide Anion Gap BUN Creatinine GFR Calculation Glucose POC Glucose (70-110) mg/dL Calculated Osmolal ity Lactic Acid (Sepsi s) (0.5-2.2) mmol/L Lactate (0.5-2.2) mmol/L Calcium Total Bilirubin AST ALT Alkaline Phosphata se Creatine Kinase Troponin T Baselin e Troponin T 120 Min [place] (0-10) ng/L Delta Troponin T (0-10) ABS# C-Reactive Protein Total Protein Albumin Globulin Lipase HCG, Qual Negative (Negative) Urine Color Yellow (Yellow) Urine Appearance Clear (CLEAR) Urine pH 8 H (5-7) Ur Specific Gravit y 1.010 (1.005-1.030) Urine Protein Neg (Negative) Urine Glucose (UA) Norm (Normal) Urine Ketones Negative (Negative) Urine Blood Neg (Negative) Urine Nitrate Negative (Negative) Urine Bilirubin Neg (Negative) Prot Sulfosalicyli c Acd Negative (Negative) Urine Urobilinogen Norm (Negative) mg/dL Ur Leukocyte Myrna ase Negative (Negative) Urine Opiates Scre en (Negative) ng/mL Ur Barbiturates Sc reen (Negative) ng/mL Ur Phencyclidine S crn (Negative) ng/mL Ur Amphetamines Sc reen (Negative) ng/mL U Benzodiazepines Scrn (Negative) ng/mL Urine Cocaine Scre en (Negative) ng/mL U Marijuana (THC) Screen (Negative) ng/mL 06/02/21 06/02/21 Range/Units 19:14 19:14 WBC (4.0-10.0) 10^3/ uL RBC (4.1-5.3) 10^6/u L Hgb (11.5-15.3) g/dL Hct (37.0-47.0) % MCV (81-99) fl MCH (28.0-34.0) pg MCHC (30.0-36.0) g/dL RDW (12.1-15.1) % Plt Count (130-400) 10^3/c mm MPV (7.4-10.4) fL Neut % (Auto) % Lymph % (Auto) % Sequoyah % (Auto) % Eos % (Auto) % Baso % (Auto) % Neut # (Auto) (1.8-7.7) 10^3/u L Lymph # (Auto) (0.8-4.8) 10^3/u L Sequoyah # (Auto) (0.2-0.9) 10^3/u L Eos # (Auto) (0.0-0.8) 10^3/u L Baso # (Auto) (0.0-0.1) 10^3/u L Nucleated RBC % (a uto) % Nucleated RBCs # /100WBC D-Dimer (0-0.59) ug/mIFE U Specimen Type Sample Site ABG pH (7.35-7.45) ABG pCO2 (35-45) mmHg ABG pO2 (80.0-100.0) mmH g ABG HCO3 (22-26) mmol/L ABG O2 Saturation ABG Base Excess (-2.0-2.0) mmol/ L Ferny Test A-a O2 Gradient Hematocrit (37-47) % Hgb O2 Saturation (95-100) % Carboxyhemoglobin (0.4-20.1) %THgb Methemoglobin (0.4-1.5) % Total Hemoglobin (12-16) g/dL Ionized Calcium (1.1-1.4) mmol/L O2 Delivery Device O2 Liters/Min % FiO2 % Automatic Outsole Cutter ID Sodium Potassium Chloride Carbon Dioxide Anion Gap BUN Creatinine GFR Calculation Glucose POC Glucose (70-110) mg/dL Calculated Osmolal ity Lactic Acid (Sepsi s) 0.8 (0.5-2.2) mmol/L Lactate (0.5-2.2) mmol/L Calcium Total Bilirubin AST ALT Alkaline Phosphata se Creatine Kinase Troponin T Baselin e Troponin T 120 Min [place] 6.64 (0-10) ng/L Delta Troponin T -0.36 L (0-10) ABS# C-Reactive Protein Total Protein Albumin Globulin Lipase HCG, Qual (Negative) Urine Color (Yellow) Urine Appearance (CLEAR) Urine pH (5-7) Ur Specific Gravit y (1.005-1.030) Urine Protein (Negative) Urine Glucose (UA) (Normal) Urine Ketones (Negative) Urine Blood (Negative) Urine Nitrate (Negative) Urine Bilirubin (Negative) Prot Sulfosalicyli c Acd (Negative) Urine Urobilinogen (Negative) mg/dL Ur Leukocyte Myrna ase (Negative) Urine Opiates Scre en (Negative) ng/mL Ur Barbiturates Sc reen (Negative) ng/mL Ur Phencyclidine S crn (Negative) ng/mL Ur Amphetamines Sc reen (Negative) ng/mL U Benzodiazepines Scrn (Negative) ng/mL Urine Cocaine Scre en (Negative) ng/mL U Marijuana (THC) Screen (Negative) ng/mL Discharge Plan Discharge Patient Disposition: Admitted As Inpatient Admit Provider: Skyla Durán Clinical Impression: Seizure Condition: Stable Coding Level of Care Code ED Visiting Teacher for Chg Fwd Exam Comprehensive
[2021-06-02 18:12] LABS: Reflex Lactate Order REFLEX LACTIC ORDERD
[2021-06-02 18:37] LABS: HCG, Serum Qual Negative (Negative)
--- NOTE | 2021-06-02 18:50 | PC.NURSE ---
patient states she is feeling better now
[2021-06-02 18:54] LABS: D Dimer 0.36 ug/mIFEU (0-0.59)
[2021-06-02 19:59] LABS: Troponin 5 2HR 6.64 ng/L (0-10)
[2021-06-02 20:01] LABS: Lactic Acid level (Lactate) 0.8 mmol/L (0.5-2.2)
[2021-06-02 20:02] LABS: Troponin 5 2HR Delta -0.36 ABS# (0-10)
--- NOTE | 2021-06-02 20:15 | PC.NURSE ---
patient is c/o increased chest pain and states she cant breath. she describes the pain as her body is spasming all over but hurts on left chest. she 99% 02 sat and is hyperventilating; I instructed her to slow her breathing and she does so progressively. I informed Dr Isidro and he comes to patient room to re evaluate.
--- NOTE | 2021-06-02 20:15 | CTR_ITS ---
PROCEDURE INFORMATION: Exam: CT Chest With Contrast; Diagnostic Exam date and time: 06/02/2021 8:15 PM Age: 21 years old Clinical indication: Abdominal pain; Localized; Chest pressure; Prior surgery; Surgery type: Csection; Patient HX: Chest and upper abd pain. ; Additional info: Chest pain, upper abdominal pain TECHNIQUE: Imaging protocol: Diagnostic computed tomography of the chest with contrast. Sagittal and coronal reformatted images were created and reviewed. Radiation optimization: All CT scans at this facility use at least one of these dose optimization techniques: automated exposure control; mA and/or kV adjustment per patient size (includes targeted exams where dose is matched to clinical indication); or iterative reconstruction. Contrast material: OMNI 300; Contrast volume: 95 ml; Contrast route: INTRAVENOUS (IV); COMPARISON: CR (CHEST, ) 06/02/2021 4:57 PM RADIATION DOSE METRICS: Total DLP (mGy-cm): 2918.11 FINDINGS: Lungs: Tracheobronchial structures are patent. Lungs are clear bilaterally. No pulmonary parenchymal nodules or masses. Pleural spaces: No pneumothorax. No pleural effusion. Heart: No cardiomegaly. No pericardial effusion. Mediastinal space: The esophagus is unremarkable. No mediastinal hematoma. No pneumomediastinum. Pulmonary arteries: Pulmonary arteries are unremarkable. Aorta: No evidence for aortic aneurysm or aortic dissection. Veins: Pulmonary veins are unremarkable. Lymph nodes: No lymphadenopathy. Bones/joints: No acute fracture. No dislocation. Soft tissues: No acute abnormality in the extrathoracic soft tissues. Patient has bilateral nipple piercings. IMPRESSION: 1. No acute cardiopulmonary process. 2. Incidental/nonacute findings are listed in the report. PROCEDURE INFORMATION: Exam: CT Abdomen And Pelvis With Contrast Exam date and time: 06/02/2021 8:15 PM Age: 21 years old Clinical indication: Abdominal pain; Localized; Chest pressure; Prior surgery; Surgery type: Csection; Patient HX: Chest and upper abd pain. ; Additional info: Chest pain, upper abdominal pain TECHNIQUE: Imaging protocol: Computed tomography of the abdomen and pelvis with contrast. Sagittal and coronal reformatted images were created and reviewed. Radiation optimization: All CT scans at this facility use at least one of these dose optimization techniques: automated exposure control; mA and/or kV adjustment per patient size (includes targeted exams where dose is matched to clinical indication); or iterative reconstruction. Contrast material: OMNI 300; Contrast volume: 95 ml; Contrast route: INTRAVENOUS (IV); COMPARISON: CR (CHEST, ) 06/02/2021 4:57 PM RADIATION DOSE METRICS: Total DLP (mGy-cm): 2918.11 FINDINGS: Liver: The liver is unremarkable. Gallbladder and bile ducts: The gallbladder is unremarkable. No biliary ductal dilatation. Pancreas: The pancreas is unremarkable. No pancreatic ductal dilatation. Spleen: The spleen is unremarkable. Adrenal glands: The right and left adrenal glands are unremarkable. Kidneys and ureters: The right and left kidneys are unremarkable. The right and left ureters are unremarkable. Stomach and bowel: No obstruction. No mucosal thickening. Appendix: The appendix is visualized and is unremarkable. No findings to suggest acute appendicitis. Intraperitoneal space: No free intraperitoneal air. No ascites. No loculated fluid collections to suggest an abscess. Vasculature: No evidence for aortic aneurysm or aortic dissection. Hepatic veins, portal veins, splenic vein, and SMV are patent. Lymph nodes: No lymphadenopathy. Urinary bladder: The bladder is unremarkable. Reproductive: There is an IUD in the uterus. The uterus is otherwise unremarkable. The right and left ovaries are unremarkable. Bones/joints: Bilateral pars defects at L5-S1. Soft tissues: No acute abnormality in the extra-abdominal soft tissues. CT/CT chest abd pel w con* IMPRESSION: 1. No acute abnormality in the abdomen or pelvis. 2. Bilateral pars defects at L5-S1. 3. There is an IUD in the uterus. Radiation Dose CTDIVOL = (mGy): DLP = 2918.11~2918.11 (mGy-cm)
[2021-06-02] MEDS: fentaNYL 50 mcg/mL INJ 2mL IVP (20:32)
[2021-06-02] MEDS: iohexol 300 mg/mL 100 mL Btl IV (20:42)
--- NOTE | 2021-06-02 21:22 | ECG_ITS ---
[facility] Test Date: 2021-06-02 Pat Name: Halima Gutiérrez Department: Room: Gender: Female Quality Review Trainer: : 2000 Requested By: Fredi Isidro I Order Number: [id number] Reading MD: MILLIE FITZPATRICK Measurements Intervals [place] Rate: 71 P: 37 [place]: 198 QRS: 76 QRSD: 97 T: 50 QT: 407 QTc: 443 Interpretive Statements SINUS RHYTHM POSSIBLE RIGHT VENTRICULAR CONDUCTION DELAY [RSR (QR) IN V1/V2] Compared to ECG 06/02/2021 17:22:49 No significant changes Electronically Signed On 06-03-2021 22:22:47 CDT by MILLIE FITZPATRICK [id number]
--- NOTE | 2021-06-02 23:50 | PC.NURSE ---
report to Maximiliano SOLANO
[2021-06-03] VITALS (10 sets, daily range): BP systolic 101–129; BP diastolic 60–66; PULSE 61–90; RESP 12–96; TEMP 36.4–37.2; O2SAT 92–99
[2021-06-03] MEDS: LORazepam 2 mg/mL INJ 1 mL 1 MG IVP (00:35)
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
--- NOTE | 2021-06-03 07:15 | PC.NURSE ---
THIS NURSE (FELIPA) RECEIVED REPORT AT 7AM. WILL CONTINUE PT CARE. CHARTING FOR FELIPA WILL BEGIN AT 7AM
[2021-06-03] MEDS: LORazepam 2 mg/mL INJ 1 mL 0.5 MG IVP ×5 (08:02→18:20)
[2021-06-03] MEDS: morphine 4 mg/mL SDV 1 mL 2 MG IVP ×3 (08:02→18:10)
[2021-06-03] MEDS: ondansetron 2 mg/ML SDV 2 mL 4 MG IVP (08:03)
--- NOTE | 2021-06-03 08:40 | PC.NURSE ---
this nurse updated poison control.
[2021-06-03 08:50] LABS: Add Urine Microscopic? NO; Charge for UA Resulting for Rev
[2021-06-03 09:25] LABS: Blood Urine Neg (Negative); Glucose Urine UA Norm (Normal); Ketones Urine Negative (Negative); Leukocyte Esterase Urine Negative (Negative); Nitrate Urine Negative (Negative); Protein Urine Neg (Negative); Sulfosalicylic Acid Urine Negative (Negative); Urine Appearance Clear (CLEAR); Urine Color Yellow (Yellow); Urobilinogen Urine Norm (Negative); pH Urine 8 (5-7)
[2021-06-03 09:26] LABS: Bilirubin Urine Neg (Negative)
--- NOTE | 2021-06-03 10:10 | ECG_ITS ---
[facility] Test Date: 2021-06-03 Pat Name: Halima Gutiérrez Department: Room: EDIP Gender: Female Personal Banking Advisor: : 2000 Requested By: Akshat Edgar Order Number: [id number] Reading MD: MILLIE FITZPATRICK Measurements Intervals [place] Rate: 81 P: 54 WA: 195 QRS: 63 QRSD: 96 T: 37 QT: 386 QTc: 451 Interpretive Statements SINUS RHYTHM Compared to ECG 06/02/2021 22:50:34 No significant changes Electronically Signed On 06-03-2021 22:22:25 CDT by MILLIE FITZPATRICK [id number]
[2021-06-03] MEDS: diphenhydrAMINE 50 mg/mL SDV 1mL 25 MG IVP (11:40)
[2021-06-03] MEDS: buPROPion SR (12 HR) 100 mg Tablet 200 MG PO (13:51)
[2021-06-03] MEDS: pantoprazole 40 mg SDV IVP ×2 (13:51→22:27)
[2021-06-03] MEDS: acetaminophen 325 mg Tablet 650 MG PO (13:51)
[2021-06-03] MEDS: ALPRAZolam 0.5 mg Tablet PO ×2 (13:51→20:30)
[2021-06-03] MEDS: folic acid 1 MG, multivitamin inj 10 ML, thiamine 100 MG in sodium chloride 0.9% 1,000 ML 75 MG IV (13:52)
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
--- NOTE | 2021-06-03 17:13 | PM.PN ---
Subjective Subjective: Interval history: Admitted overnight H&P and labs noted. Patient had an uneventful day of transfer to [facility]. As per conversation with the Police Department the bag tested negative for heroin, cocaine, THC. The back has been sent over to crime lab for further investigation. All the above was discussed with the patient. She is complaining of occasional chest burning, nausea. States she has never had the symptoms before. Does not want to eat and tearful tearful in between. Rapid response was called around 515 PM because patient was having difficulty in breathing leading to choking sensation with patient having increased respiratory rate up to 30. She was treated with 1 mg of IV Ativan and 2 mg of morphine along with Zofran. Labs were taken. Vitals/I&O/Wt Last Vital Signs Temp 98.9 F 06/03/21 15:20 Pulse 70 06/03/21 15:20 Resp 16 06/03/21 15:20 BP 108/64 06/03/21 15:20 Pulse Ox 98 06/03/21 15:20 Weight last 48 hrs Weight 99.79 kg Physical Exam Narrative: EXAM NARRATIVE: General: No acute distress, AO x3, awake and alert, sad appearing HEENT: PERRLA, pupils bilaterally equal and reactive, pallors not present Chest: Normal vesicular breath sounds, no added sounds, equal good air entry bilaterally CVS: S1-S2 regular, no murmurs, no tachycardia, no gallops, no rubs Abdomen: Soft, nontender, no organomegaly, bowel sounds present Neuro: No focal motor deficits grossly Data : 06/02/21 15:10 06/02/21 16:11 A&P Assessment and plan (1) Accidental drug overdose: Accidental drug exposure to a combination of methamphetamines, heroin and kratom. Exposure seems to have been more through skin and mucous membranes. Case discussed with poison control. As per recommendation methamphetamines and Kratom in small doses potentially act as stimulants, however less likely to have epileptic activity with small dose exposure. Recommended to continue symptomatic and supportive management with close monitoring of cardiovascular status and use benzodiazepines if needed. Noted seizure-like activity may have been a result of hyperventilation. Patient did not have any postictal state, bowel bladder accidents or tongue bite. While possibility of true seizure episodes cannot be excluded, this remains less likely in the differential currently. She did receive Keppra 1 g IV after the first episode. For now we will continue to monitor closely overnight and hold off on further doses. CT head did not show acute intracranial abnormalities. Currently remains hemodynamically stable. No acute ST-T wave changes on EKG. Troponin series negative. Status: Acute Qualifiers: Encounter type: initial encounter Qualified Code(s): T50.901A - Poisoning by unspecified drugs, medicaments and biological substances, accidental (unintentional), initial encounter Additional A&P Information Continue to monitor hemodynamics start patient on banana bag at 75 cc an hour. Xanax as needed 0.5 every 8 hourly. Start on Zyprexa 7.5 mg nightly. Consult psychiatry. We will continue to monitor Neurological changes, cardiovascular changes for next 24 hours. Full code. Repeat labs CBC, CMP, CPK stat. Protonix OPD prophylaxis. Regular diet. Attestations Medical Necessity Statement*: Requires further hospitalization for monitoring for accidental possible overdose by he is monitored for neurological, hemodynamic changes. Time Spent in Patient Care: Greater than 35 minutes (>than 50% of time spent in counselling and/or direct pt care on unit). Coding Level of Care Code Acute Clay Pigeon Loader for Andrade Steward Diagnoses Accidental drug overdose T50.901A Encounter type: initial encounter
[2021-06-03 17:52] LABS: Basophils % 0.2 %; Eosinophils % 0.1 %; Hematocrit 36.3 % (37.0-47.0); Hemoglobin 11.3 g/dL (11.5-15.3); Lymphocytes # 1.8 10^3/uL (0.8-4.8); Lymphocytes % 13.8 %; Mean Corpuscular HGB Conc 31.1 g/dL (30.0-36.0); Mean Corpuscular Hemoglobin 28.4 pg (28.0-34.0); Mean Corpuscular Volume 91.2 fl (81-99); Mean Platelet Volume 10.9 fL (7.4-10.4); Monocytes # 0.8 10^3/uL (0.2-0.9); Monocytes % 5.8 %; Neutrophils # 10.61 10^3/uL (1.8-7.7); Neutrophils % 79.6 %; Nucleated Red Blood Cells % 0 %; Platelet Count 290 10^3/cmm (130-400); Red Blood Count 3.98 10^6/uL (4.1-5.3); Red Cell Distribution Width 13.7 % (12.1-15.1); White Blood Count 13.3 10^3/uL (4.0-10.0)
[2021-06-03 18:01] LABS: ABG PCO2 34.4 mmHg (35-45); Alveolar-Arterial Oxygen Gradi 1.3 mmHg (5-10); Arterial Blood Gas Hematocrit 33.7 % (37-47); Blood Gas Allen Test Pos; Blood Gas Operator Identificat BROMA; Blood Gas Sample Site Radial, right; Blood Gas Sample Type Arterial; Carboxyhemoglobin 0.8 %THgb (0.4-20.1); HCO3 ABG 21.2 mmol/L (22-26); HGB O2 Sat 96.7 % (95-100); Ionized Calcium Level - ABG 1.3 mmol/L (1.1-1.4); Methemoglobin 0.9 % (0.4-1.5); Oxygen Device NC; Oxygen Saturation ABG 98.5; PO2 ABG 96.3 mmHg (80.0-100.0); Potassium Level - ABG 3.3 mmol/L (3.5-5.0)
[2021-06-03 18:52] LABS: Alanine Aminotransferase 11 U/L (0-33); Albumin Level 4.2 g/dL (3.5-5.2); Alkaline Phosphatase 94 IU/L (35-105); Aspartate Amino Transferase 12 U/L (0-32); Blood Urea Nitrogen 12 mg/dL (6-20); Calcium 9.4 mg/dL (8.5-10.5); Carbon Dioxide 19 mmol/L (22-29); Chloride 103 mmol/L (98-107); Creatine Phosphokinase 60 U/L (26-192); Globulin 2.7 g/dL (1.3-4.6); Glomerular Filtration Rate 88.9 mL/min (90-130); Glucose 113 mg/dL (65-115); Osmolality Calculated 287 mOsm/kg (285-295); Sodium 138 mmol/L (136-145); Total Bilirubin 0.3 mg/dL (0.15-1.2); Total Protein 6.9 g/dL (6.6-8.7)
--- NOTE | 2021-06-03 19:17 | PC.NURSE ---
Rapid response was called and upon staff entering room patient was having seizure-like activity. arrived to the room and orders were given to give ativan, morphine, and zofran. Patient was placed on a non-rebreather per . 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 Orders were placed for ABGs as well per verbal order.
[2021-06-03] MEDS: OLANZapine 5 mg ODT 7.5 MG PO (20:34)
[2021-06-04] VITALS (8 sets, daily range): BP systolic 108–134; BP diastolic 62–75; PULSE 72–102; RESP 16–18; TEMP 36.3–36.8; O2SAT 96–100
--- NOTE | 2021-06-04 05:36 | PC.NURSE ---
Patient rested well throughout the night. No new events, VSS, no c/o pain. Tolerating diet and voiding. Siderails remain padded and suction at bedside, room clutter free with call light in reach. Patient OOBT restroom without complications. AAOx4, no needs at this time. Will report and handoff patient to oncoming nurse at shift change.
[2021-06-04] MEDS: sodium chloride 0.9% 250 ML IV (08:00)
[2021-06-04] MEDS: buPROPion SR (12 HR) 100 mg Tablet 200 MG PO (08:11)
[2021-06-04] MEDS: pantoprazole 40 mg SDV IVP (08:12)
--- NOTE | 2021-06-04 10:15 | MR_ITS ---
WS: [id number] MRI BRAIN WITHOUT CONTRAST HISTORY: seizure COMPARISON: CT head 06/02/2021 TECHNIQUE: Diffusion imaging, multiplanar T1, T2 and FLAIR imaging obtained. There is significant artifact through the anterior brain on several of the sequences due to patient's dental hardware. Very limited evaluation for acute infarct or hemorrhage due to artifact through the brain. Also signi ficant signal abnormality noted to the anterior brain on the FLAIR sequence for marked from artifact. T2 weighted sequence is normal. No significant abnormality in the michael-white matter. No midline shift or mass effect. No volume loss or atrophy. Mild ectopia of the cerebellar tonsils with no pegging. Ventricles and extra-axial spaces are normal. No inferior displacement of cerebellar tonsils. The sella turcica and pituitary gland are unremarkabl e. Limited evaluation of the dural venous sinuses and the nonenhanced lower b[place] of [place]. Paranasal sinuses: Clear. Mastoid air cells: Normal. Calvarium and scalp: Intact. MR/MR head wo con* [id number] IMPRESSION: 1. Significant artifact through large portions of the brain on numerous sequen yrn secondary to patient's dental hardware. 2. No abnormality within the brain noted on the sequences without artifact.
[2021-06-04] MEDS: morphine 4 mg/mL SDV 1 mL 2 MG IVP (10:23)
[2021-06-04] MEDS: LORazepam 2 mg/mL INJ 1 mL 0.5 MG IVP (10:23)
--- NOTE | 2021-06-04 11:24 | PC.NURSE ---
At approximately 1000 found patient in bed appears to be hyperventilation and muscles tensed up. Pt unable to respond to me, therefor rapid response called. SPo2 96% @2L, BP 149/55, RR 25. Non rebreather applied @ 15lpm. Orders received by Dr. Boogie to administer additional lorazepam and morphine. Shortly after patients breathing returned WNL. EMS arrived shortly after rapid response to transfer patient to MRI. Clarified with Dr. Boogie and court specialistArnold Green about transfer. senior db2 systems programmer accompanied EMS to MRI. Will continue to monitor situation once patient arrives back to the floor.
[2021-06-04] MEDS: acetaminophen 325 mg Tablet 650 MG PO ×3 (12:37→20:47)
[2021-06-04] MEDS: LORazepam 2 mg/mL INJ 1 mL (13:41)
--- NOTE | 2021-06-04 14:42 | P.PN_ITS ---
Subjective NPU Subjective: Interval history: Patient presents today continuing to be focused on the possibility of an exposure and not believing any of this is psychological. We agreed that we need to touch base with somebody definitive because he continued to have her reporting that there clearly was tramadol and some things and that that were consistent with possibly heroin and some understa nding that there was Kratom involved. We discussed the importance of talking to detectives so that we have an absolute understanding of what we know right now even though some things we we cannot know for about 6 months. Mental Status Exam MSE Comments: This is an obese, white female, with limited grooming and eye contact. No abnormal movements, except for significant psychomotor agitation, with occasional writhing. Cooperative with exam in moderate to severe distress, at times. Speech was decreased rate and volume, with some clenching of her teeth and speaking through that. Mood described as anxious; affect congruent. Thought process, organized. Thought content: patient denied any suicidal or homicidal ideation, there were no delusions reported or noted, patient denied any auditory or visual hallucinations. Attention, concentration, and memory appear intact but none were formally tested. She is alert and oriented times three. Insight and judgment appear fair. Impulse control appears fair. Vitals/I&O/Wt Last Vital Signs Temp 97.4 F L 06/04/21 11:41 Pulse 79 06/04/21 11:41 Resp 16 06/04/21 11:41 BP 113/73 06/04/21 11:41 Pulse Ox 100 06/04/21 11:41 Data NPU : 06/05/21 06:15 06/05/21 06:15 A&P Additional A&P Information (1) Accidental drug overdose: (2) Seizure: (3) Adjustment insomnia: (4) Encounter for behavioral health screening: (5) Morbid obesity with BMI of 40.0-44.9, adult: (6) Congenital pulmonary valve stenosis: (7) TMJ (temporomandibular joint syndrome): (8) Anxiety and depression: (9) Migraine, menstrual: Additional A&P Information This is a 24 year old, white female, with a history of anxiety and significant stress at work, who presents after some kind of toxic exposure, with no known etiology that has been confirmed. 1. Continue current medication. 2. Currently does not appear to be a psychological presentation or conversion disorder, per se, but it could possibly be an anxiety related to fear about what her exposure was. 3. We will gather more information and will continue to follow. Attempt to reach detectives at [facility]. Attestations NPU Medical Necessity Statement*: Please see primary team note for medical necessity. Coding Level of Care Code Acute Strapping Machine Tender for Andrade Steward
--- NOTE | 2021-06-04 15:27 | PC.CHAP ---
Pastoral Care Encounter/Spiritual Assessment Type of Contact [xx] Declined director of student financial services visit [] Patient/Family/Request visit [] Outpatient visit [] Follow-up visit [] Physician referral [] Code/Alert [xx] Routine visit [] Staff referral [] Actively dying [] Patient sleeping [] Family support [] [] Out of room [] Palliative care [] [] Receiving care in room [] Pre-surgical visit [] Trauma [] Long length of stay [] ICU visit [] Other: Relational/Emotional Strength [] Patient feels connected with others/family/visitors/staff [] Distress [] Loneliness/isolation [] Abandonment Spirituality of Patient [] Person of Ольга [] Attends Adventism of their Ольга [] Believes in Prayer [] Reads Bible or Religion materials [] There are Spiritual issues to be addressed Caddy/Caddie Supervisor Interventions [] Prayer [] Active listening [] Non-anxious presence [] Spiritual/emotional support [] Crisis/trauma care [] Spiritual counseling [] Bereavement support [] Provided bereavement packet [] Provided Bible/devotional materials [] Provided toy/stuffed animal, coloring book to patient or family member [] Provided Communion [] Anointing/[place] [] Salvation [] Completed spiritual assessment [] Other: Impact on Illness or Injury [] Angry [] Fearful [] Anxious [] Often cries [] Exhaustion [] Unable to work [] Unable to attend shinto [] Unable to walk/stand [] Unable to read [] Unable to drive [] Unable to eat/drink [] Unable to sleep [] Unable to be with family [] Patient intubated [] Other: Summary Patient very nauseated and did not want to embarrass herself in front of director of student financial services so declined visit. Time spent with patient 2 minutes
[2021-06-04] MEDS: OLANZapine 5 mg ODT 7.5 MG PO (20:33)
[2021-06-04] MEDS: ALPRAZolam 0.5 mg Tablet PO (21:06)
[2021-06-05] MEDS: pantoprazole 40 mg SDV IVP (02:59)
[2021-06-05 03:57] VITALS: BP 107/67; PULSE 65; RESP 16; TEMP 36.2; O2SAT 96
[2021-06-05 06:33] LABS: Basophils # 0.1 10^3/uL (0.0-0.1); Basophils % 0.7 %; Eosinophils # 0.2 10^3/uL (0.0-0.8); Eosinophils % 2.6 %; Hematocrit 35.7 % (37.0-47.0); Hemoglobin 10.5 g/dL (11.5-15.3); Lymphocytes # 3.3 10^3/uL (0.8-4.8); Lymphocytes % 38.8 %; Mean Corpuscular HGB Conc 29.4 g/dL (30.0-36.0); Mean Corpuscular Hemoglobin 28.7 pg (28.0-34.0); Mean Corpuscular Volume 97.5 fl (81-99); Mean Platelet Volume 10.8 fL (7.4-10.4); Monocytes # 0.6 10^3/uL (0.2-0.9); Monocytes % 6.7 %; Neutrophils # 4.31 10^3/uL (1.8-7.7); Nucleated Red Blood Cells % 0 %; Platelet Count 225 10^3/cmm (130-400); Red Blood Count 3.66 10^6/uL (4.1-5.3); White Blood Count 8.5 10^3/uL (4.0-10.0)
[2021-06-05 07:03] LABS: Alanine Aminotransferase 7 U/L (0-33); Albumin Level 3.4 g/dL (3.5-5.2); Alkaline Phosphatase 79 IU/L (35-105); Aspartate Amino Transferase 8 U/L (0-32); Blood Urea Nitrogen 12 mg/dL (6-20); Calcium 8.3 mg/dL (8.5-10.5); Carbon Dioxide 23 mmol/L (22-29); Chloride 104 mmol/L (98-107); Globulin 2.3 g/dL (1.3-4.6); Glomerular Filtration Rate 88.9 mL/min (90-130); Glucose 105 mg/dL (65-115); Osmolality Calculated 284 mOsm/kg (285-295); Sodium 137 mmol/L (136-145); Total Bilirubin 0.2 mg/dL (0.15-1.2); Total Protein 5.7 g/dL (6.6-8.7)
[2021-06-05 07:43] VITALS: BP 115/73; PULSE 66; RESP 17; TEMP 36.6; O2SAT 98
[2021-06-05] MEDS: buPROPion SR (12 HR) 100 mg Tablet 200 MG PO (09:56)
[2021-06-05 11:21] VITALS: BP 125/82; PULSE 95; RESP 18; TEMP 36.7; O2SAT 98
--- NOTE | 2021-06-05 11:22 | P.PN_ITS ---
Subjective Subjective: Interval history: No acute events overnight. Patient rested well in the bed. Today morning at around 8 AM while she was taken for MRI had a rapid response called. Patient I was at bedside. During the episode patient had an episode of hyperventilating along with bearing down for which she was coached on how to breathe, given 0.5 of Ativan and 2 mg of morphine. Patient did not have any confusion during or after the episode, was AOx3 and now is able to follow commands completely. This episode was similar to the one she had yesterday evening. During event patient is complaining of mild chest tightness, did not have any bowel or bladder accidents. Remained hemodynamically stable and saturating 96% on room air. Patient was put on nonrebreather mask during the episode. Afterwards in the evening when seen patient was scared for the reason of why this is happening to her . She is anxious to see what crime lab finds in the bag. She thinks her symptoms are secondary to her exposure and does not think this is related to do with psychology. She agrees to see Dr. Plunkett again. She has agreed to continue Zyprexa. She wants to continue Xanax. Vitals/I&O/Wt Last Vital Signs Temp 98.1 F 06/05/21 11:21 Pulse 95 06/05/21 11:21 Resp 18 06/05/21 11:21 BP 125/82 06/05/21 11:21 Pulse Ox 98 06/05/21 11:21 Physical Exam Narrative: EXAM NARRATIVE: General: No acute distress, AO x3, awake and alert, anxious, fearful appearing HEENT: PERRLA, pupils bilaterally equal and reactive, pallors not present Chest: Normal vesicular breath sounds, no added sounds, equal good air entry bilaterally CVS: S1-S2 regular, no murmurs, no tachycardia, no gallops, no rubs Abdomen: Soft, nontender, no organomegaly, bowel sounds present Neuro: No focal motor deficits grossly Data : 06/05/21 06:15 06/05/21 06:15 A&P Assessment and plan (1) Accidental drug overdose: Accidental drug exposure to a combination of methamphetamines, heroin and kratom. Exposure seems to have been more through skin and mucous membranes. Case discussed with poison control. As per recommendation methamphetamines and Kratom in small doses potentially act as stimulants, however less likely to have epileptic activity with small dose exposure. Recommended to continue symptomatic and supportive management with close monitoring of cardiovascular status and use benzodiazepines if needed. Noted seizure-like activity may have been a result of hyperventilation. Patient did not have any postictal state, bowel bladder accidents or tongue bite. While possibility of true seizure episodes cannot be excluded, this remains less likely in the differential currently. She did receive Keppra 1 g IV after the first episode. For now we will continue to monitor closely overnight and hold off on further doses. CT head did not show acute intracranial abnormalities. Currently remains hemodynamically stable. No acute ST-T wave changes on EKG. Troponin series negative. Status: Acute Qualifiers: Encounter type: initial encounter Qualified Code(s): T50.901A - Poisoning by unspecified drugs, medicaments and biological substances, accidental (unintentional), initial encounter Additional A&P Information Continue to monitor hemodynamics start patient on banana bag at 75 cc an hour. Xanax as needed 0.5 every 8 hourly. Continue with Zyprexa 7.5 mg nightly. Will check MRI brain with and without contrast. Consult psychiatry. We will continue to monitor Neurological changes, cardiovascular changes for next 24 hours. Full code. Repeat labs CBC, CMP, CPK stat. Protonix OPD prophylaxis. Regular diet. Attestations Medical Necessity Statement*: Requires further hospitalization for monitoring for accidental drug overdose, anxiety and possible panic attack. Time Spent in Patient Care: Greater than 35 minutes (>than 50% of time spent in counselling and/or direct pt care on unit) . Coding Level of Care Code Acute Correctional Supply Supervisor for Andrade Steward Diagnoses Accidental drug overdose T50.901A Encounter type: initial encounter
--- NOTE | 2021-06-05 11:26 | PM.DCS ---
Discharge Providers Date of Admission: 06/03/21 03:24 Date of Discharge: June 05, 2021 Attending Provider at Admission: Skyla Durán MD Attending Provider at Discharge: Akshat Edgar MD Consults: Psychiatric: Dr. 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 Patient reports that she was making a traffic stop and ceased some drugs in a bag which was initially thought to be heroin, later on lab analysis confirmed to be a combination of methamphetamines, heroin and kratom. While holding the sealed bag patient started sweating and then while attempting to wipe the sweat of she suspected that she may have got some powder in her eyes and on her skin. Shortly afterwards she started to feel chest pain, experienced lightheadedness and had a severe headache. Upon arrival at the ER she was noted to be hyperventilating. Arterial blood gas analysis was consistent with the same. She also complained of lightheadedness and abdominal pain. There was suspicion that she may have had a brief tonic-clonic episode of seizure lasting less than 1 minute, there was no postictal phase reportedly. Has no urinary or bowel incontinence. CT of the chest abdomen and pelvis with contrast were negative for any acute intraabdominal or acute chest abnormalities. Her symptoms improved after being administered Ativan and Benadryl. Vital signs have remained stable. She was initially tachycardic upon arrival with heart rate in 120s, at the time of my evaluation this is ranging between 69-84. Blood pressure has ranged between 1 20-1 40 systolic. She saturating 92 to 95% on room air. EKG shows sinus rhythm without acute ST-T wave changes. Troponin within normal range and negative delta at 2 hours. Beta-hCG is negative. Patient has a past medical history of pulmonic stenosis since for which she follows with [facility] opportunity specialist in [place]. There is no past history of seizure disorder. Patient was admitted to the hospital for further monitoring. Case was discussed with Police Department and they verbally reported that the back tested negative for heroin, cocaine, THC and has been sent to crime lab for further investigation which could take up to 1 to 6 months. Her care was also discussed with poison control who stated that methamphetamines and kratom in small doses potentially act as stimulants however it is very less likely to have been epileptic activity with a small dose exposure. They recommended for the patient to be monitored for any changes in cardiovascular status and to continue with supportive management and to use benzodiazepines if and when needed. Patient was not continued on Keppra during hospitalization. Her blood work remained stable. During hospitalization patient had 2 episodes when rapid response was called with physician at bedside and she was noticed to have episodes of hyperventilating with bearing down during which she was alert, oriented and following commands and needed to be coached about breathing exercises and was given small doses of Ativan and morphine. Patient did not have any confusion or loss of consciousness during or after the episode. Her blood work remained stable. Her urine drug screen on admission was negative other than opiates which she was given on her route to the hospital. Patient was also seen by psychiatry and the recommendations were appreciated. Patient is been discharged in hemodynamically stable condition after being monitored cardiovascularly and neurologically for over 48 hours when she has not had any similar episodes for more than 24 hours with advised to follow-up with her family doctor within next 1 week and to continue to follow-up with behavioral health clinic. Physical Exam Narrative: EXAM NARRATIVE: General: No acute distress, AO x3, awake and alert, anxious, fearful appearing HEENT: PERRLA, pupils bilaterally equal and reactive, pallors not present Chest: Normal vesicular breath sounds, no added sounds, equal good air entry bilaterally CVS: S1-S2 regular, no murmurs, no tachycardia, no gallops, no rubs Abdomen: Soft, nontender, no organomegaly, bowel sounds present Neuro: No focal motor deficits grossly Discharge Data Data Completed and Pending: Completed Studies During Hospitalization Category Date Time Status CT chest abd pel w con* Urgent Cat Scan 06/02/21 20:[address] head wo con* 7 [id number] Urgent Cat Scan 06/02/21 17:03 Completed XR chest 1V noel ble [id number] Stat Exams 06/02/21 15:22 Completed MR head wo con* 7 [id number] Routine MRI 06/04/21 10:15 Completed Labs from last 24 hours 06/05/21 06/05/21 06:15 06:15 WBC 8.5 RBC 3.66 L Hgb 10.5 L Hct 35.7 L MCV 97.5 MCH 28.7 MCHC 29.4 L RDW 14.0 Plt Count 225 MPV 10.8 H Neut % (Auto) 51.0 Lymph % (Auto) 38.8 [place] % (Auto) 6.7 Eos % (Auto) 2.6 Baso % (Auto) 0.7 Neut # (Auto) 4.31 Lymph # (Auto) 3.3 [place] # (Auto) 0.6 Eos # (Auto) 0.2 Baso # (Auto) 0.1 Nucleated RBC % (a uto) 0 Nucleated RBCs # 0.0 Sodium 137 Potassium 4.0 Chloride 104 Carbon Dioxide 23 Anion Gap 14.0 BUN 12 Creatinine 0.8 GFR Calculation 88.9 L Glucose 105 Calculated Osmolal ity 284 L Calcium 8.3 L Total Bilirubin 0.2 AST 8 ALT 7 Alkaline Phosphata se 79 Total Protein 5.7 L Albumin 3.4 L Globulin 2.3 Addt'l Data from Hospital Stay: Laboratory Results WBC 8.5 10^3/uL (4.0- 10.0) 06/05/21 06:15 RBC 3.66 10^6/uL (4.1 -5.3) L 06/05/21 06:15 Hgb 10.5 g/dL (11.5-1 5.3) L 06/05/21 06:15 Hct 35.7 % (37.0-47.0 ) L 06/05/21 06:15 MCV 97.5 fl (81-99) 06/05/21 06:15 MCH 28.7 pg (28.0-34. 0) 06/05/21 06:15 MCHC 29.4 g/dL (30.0-3 6.0) L 06/05/21 06:15 RDW 14.0 % (12.1-15.1 ) 06/05/21 06:15 Plt Count 225 10^3/cmm (130 -400) 06/05/21 06:15 MPV 10.8 fL (7.4-10.4 ) H 06/05/21 06:15 Neut % (Auto) 51.0 % 06/05/21 06:15 Lymph % (Auto) 38.8 % 06/05/21 06:15 [place] % (Auto) 6.7 % 06/05/21 06:15 Eos % (Auto) 2.6 % 06/05/21 06:15 Baso % (Auto) 0.7 % 06/05/21 06:15 Neut # (Auto) 4.31 10^3/uL (1.8 -7.7) 06/05/21 06:15 Lymph # (Auto) 3.3 10^3/uL (0.8- 4.8) 06/05/21 06:15 [place] # (Auto) 0.6 10^3/uL (0.2- 0.9) 06/05/21 06:15 Eos # (Auto) 0.2 10^3/uL (0.0- 0.8) 06/05/21 06:15 Baso # (Auto) 0.1 10^3/uL (0.0- 0.1) 06/05/21 06:15 Nucleated RBC % (a uto) 0 % 06/05/21 06:15 Nucleated RBCs # 0.0 /100WBC 06/05/21 06:15 D-Dimer 0.36 ug/mIFEU (0- 0.59) 06/02/21 18:00 Specimen Type Arterial 06/03/21 17:50 Sample Site Radial, right 06/03/21 17:50 ABG pH 7.40 (7.35-7.45) 06/03/21 17:50 ABG pCO2 34.4 mmHg (35-45) L 06/03/21 17:50 ABG pO2 96.3 mmHg (80.0-1 00.0) 06/03/21 17:50 ABG HCO3 21.2 mmol/L (22-2 6) L 06/03/21 17:50 ABG O2 Saturation 98.5 06/03/21 17:50 ABG Base Excess -3.0 mmol/L (-2.0 -2.0) L 06/03/21 17:50 [place]y Test Pos 06/03/21 17:50 A-a O2 Gradient 1.3 mmHg (5-10) L 06/03/21 17:50 Hematocrit 33.7 % (37-47) L 06/03/21 17:50 Hgb O2 Saturation 96.7 % (95-100) 06/03/21 17:50 Carboxyhemoglobin 0.8 %THgb (0.4-20 .1) 06/03/21 17:50 Methemoglobin 0.9 % (0.4-1.5) 06/03/21 17:50 Total Hemoglobin 11.0 g/dL (12-16) L 06/03/21 17:50 Sodium 142.0 mmol/L (131 -143) 06/03/21 17:50 Potassium 3.3 mmol/L (3.5-5 .0) L 06/03/21 17:50 Glucose 122.0 mg/dL (70-1 15) H 06/03/21 17:50 Ionized Calcium 1.3 mmol/L (1.1-1 .4) 06/03/21 17:50 O2 Delivery Device Nc 06/03/21 17:50 O2 Liters/Min 2.0 % 06/02/21 16:44 FiO2 28.0 % 06/02/21 16:44 Public Address Announcer ID Broma 06/03/21 17:50 Sodium 137 mmol/L (136-1 45) 06/05/21 06:15 Potassium 4.0 mmol/L (3.5-5 .1) 06/05/21 06:15 Chloride 104 mmol/L (98-10 7) 06/05/21 06:15 Carbon Dioxide 23 mmol/L (22-29) 06/05/21 06:15 Anion Gap 14.0 (5-19) 06/05/21 06:15 BUN 12 mg/dL (6-20) 06/05/21 06:15 Creatinine 0.8 mg/dL (0.5-0. 9) 06/05/21 06:15 GFR Calculation 88.9 mL/min (90-1 30) L 06/05/21 06:15 Glucose 105 mg/dL (65-115 ) 06/05/21 06:15 POC Glucose 113 mg/dL (70-110 ) H 06/02/21 15:15 Calculated Osmolal ity 284 mOsm/kg (285- 295) L 06/05/21 06:15 Lactic Acid (Sepsi s) 0.8 mmol/L (0.5-2 .2) 06/02/21 19:14 Lactate 1.4 mmol/L (0.5-2 .2) 06/02/21 16:20 Calcium 8.3 mg/dL (8.5-10 .5) L 06/05/21 06:15 Total Bilirubin 0.2 mg/dL (0.15-1 .2) 06/05/21 06:15 AST 8 U/L (0-32) 06/05/21 06:15 ALT 7 U/L (0-33) 06/05/21 06:15 Alkaline Phosphata se 79 IU/L (35-105) 06/05/21 06:15 Creatine Kinase 60 U/L (26-192) 06/03/21 17:40 Troponin T Baselin e 7 ng/L (0-10) 06/02/21 16:11 Troponin T 120 Min [place] 6.64 ng/L (0-10) 06/02/21 19:14 Delta Troponin T -0.36 ABS# (0-10) L 06/02/21 19:14 C-Reactive Protein 8.2 mg/L (0.0-4.9 ) H 06/02/21 16:11 Total Protein 5.7 g/dL (6.6-8.7 ) L 06/05/21 06:15 Albumin 3.4 g/dL (3.5-5.2 ) L 06/05/21 06:15 Globulin 2.3 g/dL (1.3-4.6 ) 06/05/21 06:15 Lipase 21 U/L (13-60) 06/02/21 16:11 HCG, Qual Negative (Negati ve) 06/02/21 18:00 Urine Color Yellow (Yellow) 06/02/21 17:00 Urine Appearance Clear (CLEAR) 06/02/21 17:00 Urine pH 8 (5-7) H 06/02/21 17:00 Ur Specific Gravit y 1.010 (1.005-1.0 30) 06/02/21 17:00 Urine Protein Neg (Negative) 06/02/21 17:00 Urine Glucose (UA) Norm (Normal) 06/02/21 17:00 Urine Ketones Negative (Negati ve) 06/02/21 17:00 Urine Blood Neg (Negative) 06/02/21 17:00 Urine Nitrate Negative (Negati ve) 06/02/21 17:00 Urine Bilirubin Neg (Negative) 06/02/21 17:00 Prot Sulfosalicyli c Acd Negative (Negati ve) 06/02/21 17:00 Urine Urobilinogen Norm mg/dL (Negat jing) 06/02/21 17:00 Ur Leukocyte Myrna ase Negative (Negati ve) 06/02/21 17:00 Urine Opiates Scre en Positive ng/mL (N egative) H 06/02/21 17:00 Ur Barbiturates Sc reen Negative ng/mL (N egative) 06/02/21 17:00 Ur Phencyclidine S crn Negative ng/mL (N egative) 06/02/21 17:00 Ur Amphetamines Sc reen Negative ng/mL (N egative) 06/02/21 17:00 U Benzodiazepines Scrn Negative ng/mL (N egative) 06/02/21 17:00 Urine Cocaine Scre en Negative ng/mL (N egative) 06/02/21 17:00 U Marijuana (THC) Screen Negative ng/mL (N egative) 06/02/21 17:00 Impressions Chest X-Ray 06/02/21 15:22 IMPRESSION: 1. Decreased inspiration, otherwise the lungs are clear. 2. The cardiac silhouette is mildly enlarged. This may be due at least in part to decreased inspiration and AP technique. 3. Incidental/nonacute findings are listed in the report. Head CT 06/02/21 17:03 IMPRESSION: 1. No acute abnormality of the brain. 2. Low lying cerebellar tonsils. 3. Incidental/nonacute findings are listed in the report. Radiation Dose CTDIVOL = (mGy): DLP = 991.84 (mGy-cm) Chest/Abdomen/Pelvis CT 06/02/21 20:15 IMPRESSION: 1. No acute abnormality in the abdomen or pelvis. 2. Bilateral pars defects at L5-S1. 3. There is an IUD in the uterus. Radiation Dose CTDIVOL = (mGy): DLP = 2918.11~2918.11 (mGy-cm) Head MRI 06/04/21 10:15 IMPRESSION: 1. Significant artifact through large portions of the brain on numerous sequences secondary to patient's dental hardware. 2. No abnormality within the brain noted on the sequences without artifact. Vitals: Last Vital Signs Temp 98.1 F 06/05/21 11:21 Pulse 95 06/05/21 11:21 Resp 18 06/05/21 11:21 BP 125/82 06/05/21 11:21 Pulse Ox 98 06/05/21 11:21 Discharge Plan Discharge Patient Disposition: Home Condition: Stable Prescriptions: New alprazolam 0.5 mg Tablet 0.5 mg PO TID PRN (Reason: Anxiety) Qty: 10 RF: 0 olanzapine 5 mg Tablet,Disintegrating 7.5 mg PO BEDTIME 30 Days Qty: 30 RF: 0 Continued sumatriptan succinate 50 mg tablet See Rx Instructions PO .COMPLEX Qty: 20 RF: 2 acetaminophen [Tylenol] 325 mg Tablet 325 mg PO QID PRN (Reason: Pain) RF: 0 ibuprofen [IBU] 600 mg tablet 600 mg PO TID PRN (Reason: pain) Qty: 30 RF: 0 amitriptyline 25 mg tablet 25 mg PO BEDTIME MDD SEE PHARMACY COMMENT RF: 0 bupropion HCl 200 mg tablet sustained-release 12 hr 200 mg PO DAILY RF: 0 Discharge Orders: Discharge Order (Routine); Ordered 06/05/21 Ordered By: Akshat Edgar Referrals: Osiel Mukherjee MD [Primary Care Provider] - 4-7 days (Please call Monday to schedule a follow up appointment. ) Discharge Diet: Regular Discharge Activity: Resume usual activity Patient Instructions: Generalized Anxiety Disorder, Alprazolam (By mouth), Olanzapine (By mouth), Anxiety (GEN), Opioid Safety Activity Restrictions/Additional Instructions: Please follow-up with a primary care provider within next 1 week. Please follow-up with [facility] within next 1 month. Please continue to follow-up for results from crime lab. Discharge Attestations Time Spent in Discharge Care*: greater than 30 min Specific Discharge Activities: educating patient, educating and/or supporting family/caregiver, discussing with pcp/other providers, discussing with director of casework department/social workers/dc planners, documenting/other paperwork and evaluating patient/reviewing data Status at Discharge: Cognitive status at discharge: cognitively intact, Behavioral status at discharge: cooperative, Functional status at discharge: independent ambulation Overall status at discharge: patient is back to baseline Quality Metrics Clinical Quality Measures During this hospital stay, did patient experience: None Coding Level of Care Code Acute Chg FW DC note Diagnoses Accidental drug overdose T50.901A Encounter type: initial encounter
== END 2021-06-05 15:00 | disposition home or self-care (01) ==
LOC: ER 06-03 01:57 → ER IP 06-03 07:09 → MEDSURG 06-03 11:14
PROVIDERS: Family Medicine; Physician Assistant; Admitting Provider Student in an Organized Health Care Education/Training Program; Emergency Provider Emergency Medicine; PCP Family Medicine Adult Medicine; Visit Provider Student in an Organized Health Care Education/Training Program
DX: T50.901A Poisoning by unspecified drugs, medicaments and biological substances, accidental (unintentional), initial encounter (principal); R56.9 Unspecified convulsions; F51.02 Adjustment insomnia; Z13.30 Encounter for screening examination for mental health and behavioral disorders, unspecified; E66.01 Morbid (severe) obesity due to excess calories; Z68.41 Body mass index [BMI] 40.0-44.9, adult; Q22.1 Congenital pulmonary valve stenosis; M26.609 Unspecified temporomandibular joint disorder, unspecified side; F41.9 Anxiety disorder, unspecified; F32.9 Major depressive disorder, single episode, unspecified; G43.829 Menstrual migraine, not intractable, without status migrainosus
CPT/HCPCS: 36415; 36416; 36600; 70450; 70551; 71045; 71260; 74177; 80051; 80053; 80306; 81003; 82330; 82550; 82805; 82962; 83605; 83690; 84484; 84703; 85025; 85378; 86140; 93005; 96361; 96374; 96375; 96376; 99285; C9113; G0378; J1200; J1953; J2060; J2270; J2405; J2930; J3010; J3411; J3490; J7030; J7050; Q9967

== ENCOUNTER → 2022-08-12 15:53 | Outpatient (BNVA) | payer OTHER, SELFPAY | PROVIDERS: PCP Family Medicine Adult Medicine; Visit Provider Family Medicine Adult Medicine | DX: Z20.822 Contact with and (suspected) exposure to COVID-19 (principal); Z01.812 Encounter for preprocedural laboratory examination; F41.9 Anxiety disorder, unspecified; H00.019 Hordeolum externum unspecified eye, unspecified eyelid; H10.10 Acute atopic conjunctivitis, unspecified eye; R11.0 Nausea; F32.9 Major depressive disorder, single episode, unspecified; F51.02 Adjustment insomnia; G43.829 Menstrual migraine, not intractable, without status migrainosus | CPT/HCPCS: 87426 ==

== ENCOUNTER → 2022-08-27 13:17 | Outpatient (BNVA) | payer OTHER, SELFPAY | PROVIDERS: PCP Family Medicine Adult Medicine; Visit Provider Nurse Practitioner Family | DX: Z01.812 Encounter for preprocedural laboratory examination (principal); Z20.822 Contact with and (suspected) exposure to COVID-19 | CPT/HCPCS: 87426 ==

== ENCOUNTER 2022-11-06 16:11 | Emergency (ER) | payer OTHER, SELFPAY ==
[2022-11-06 16:13] VITALS: BP 131/87; PULSE 99; RESP 18; TEMP 36.8; O2SAT 98; BMI 36.2
--- NOTE | 2022-11-06 16:21 | W.ED.ABDPA2 ---
HPI - Abdominal Pain General: Chief Complaint: Abdominal Pain Stated Complaint: postsurg 2mo/n/v Time Seen by Provider: 11/06/22 16:20 History of Present Illness: Ms. Gutiérrez is a 22-year-old lady with history of gastric bypass surgery and November in [place] presenting to the emergency department due to abdominal pain and generalized else. She reports no follow-up with surgery however has followed with her primary care. She has had a complicated postoperative course with recurrent episodes of dumping syndrome and dehydration requiring IV fluids. She felt ordinance again starting yesterday with multiple episodes of emesis and inability to tolerate p.o. medication as well as diarrhea, right flank cramping, headache, generalized malaise. Intensity symptoms is moderate to severe. Course has worsened. No other specific changes in health, exacerbating, or alleviating factors identified. Onset (ago): day(s) Pain Consistency: constant Location: R flank Severity: moderate Quality: stabbing and sharp Exacerbating factors: vomiting Relieving factors: nothing Associated Symptoms: Reports diarrhea, nausea, poor appetite, vomiting and other Related Data: Date of Last Menstrual Period: 02/14/21 Review of Systems General: Reports: 10 or more systems reviewed and unremarkable except in HPI and below GI: Reports: nausea, vomiting, diarrhea and other PFSH ED PFSH: Medical History Accidental drug overdose Adjustment insomnia Allergic rhinitis due to allergen Anxiety and depression Chronic nausea Congenital pulmonary valve stenosis Migraine, menstrual Morbid obesity with BMI of 40.0-44.9, adult Postoperative edema TMJ (temporomandibular joint syndrome) Surgical History H/O wisdom tooth extraction S/P gastric bypass Social History Smoking and tobacco status: never smoked Second hand smoke exposure: No Alcohol intake: never Desire information about alcohol rehabilitation?: No Desire information about substance/drug rehabilitation?: No Lives independently: Yes Marital status: Single Female Reproductive History: Date of last menstrual period: 02/14/21 Physical Exam Const: COMMON NORMALS: alert GENERAL APPEARANCE: cooperative and well developed HENMT: COMMON NORMALS: normocephalic and atraumatic HEAD & SCALP: normocephalic and atraumatic Eye: COMMON NORMALS: conjunctivae normal CONJUNCTIVA: Yes conjunctivae normal SCLERA: sclerae normal Neck/C-Spine: COMMON NORMALS: supple GENERAL: Yes trachea midline Resp: COMMON NORMALS: clear to auscultation bilaterally EFFORT & INSPECTION: Yes able to speak in complete sentences AUSCULTATION: clear to auscultation bilaterally Cardio: COMMON NORMALS: regular rate and regular rhythm RATE: regular rate RHYTHM: regular rhythm GI: COMMON NORMALS: Soft to palpation PALPATION: Yes Soft to palpation, Yes Tenderness to palpation present (GI) (Right flank), No Guarding due to palpation present (GI) and No Rigid due to palpation PERCUSSION: normal to percussion Extremity: GENERAL: Yes normal exam except as noted and No edema Neuro: COMMON NORMALS: moves all extremities SENSORIUM/ORIENTATION: Yes alert and No Orientation impaired Psych: COMMON NORMALS: mental status grossly normal and Normal thought process present THOUGHT PROCESS: Normal thought process present Course Vital Signs: Vital signs: Vital Signs Temperature 98.2 F 11/06/22 16:13 Pulse Rate 78 11/06/22 19:04 Respiratory Rate 18 11/06/22 19:04 Blood Pressure 111/53 11/06/22 19:04 Pulse Oximetry 100 11/06/22 19:04 Oxygen Delivery Me thod 11/06/22 17:58 MDM - Abdominal Pain Medical Decision Making 22-year-old lady presenting with concern over abdominal pain with nausea and vomiting with history of gastric bypass. Right upper quadrant pain is somewhat new. No evidence of acute surgical abdomen however patient does have abdominal tenderness. Labs notable for mild leukocytosis, normal hemoglobin and platelet count. Metabolic panel with some evidence of dehydration. Urinalysis with no UTI. Viral studies negative. Given possibility of complication postoperatively without the patient has not been imaged she has warrant imaging. CT without acute pathology identified. Patient felt significantly proved with fluids and Toradol/Reglan/Benadryl. She is able to tolerate p.o. intake. Most likely etiology of patient symptoms is continued nausea and vomiting with abdominal pain which may be sequelae of prior surgery or viral syndrome. The results of ED evaluation were discussed with the patient including prescriptions and/or symptomatic cares (if applicable) including appropriate and responsible use, followup plan, and return precautions. The patient verbalized understanding and felt safe for discharge. Medical Records I reviewed the patient's medical records. Lab Data I reviewed the patient's lab results. 11/06/22 17:11 11/06/22 17:11 Labs/Radiology: Radiology Impressions Abdomen/Pelvis CT 11/06/22 17:19 IMPRESSION: No acute findings. Laboratory Results WBC 11.4 10^3/uL (4.0-10.0) H 11/06/22 17:11 RBC 4.26 10^6/uL (4.1-5.3) 11/06/22 17:11 Hgb 12.9 g/dL (11.5-15.3) 11/06/22 17:11 Hct 39.1 % (37.0-47.0) 11/06/22 17:11 MCV 91.8 fl (81-99) 11/06/22 17:11 MCH 30.3 pg (28.0-34.0) 11/06/22 17:11 MCHC 33.0 g/dL (30.0-36.0) 11/06/22 17:11 RDW 12.0 % (12.1-15.1) L 11/06/22 17:11 Plt Count 270 10^3/cmm (130-400) 11/06/22 17:11 MPV 11.0 fL (7.4-10.4) H 11/06/22 17:11 Neut % (Auto) 80.0 % 11/06/22 17:11 Lymph % (Auto) 14.8 % 11/06/22 17:11 Millard % (Auto) 4.0 % 11/06/22 17:11 Eos % (Auto) 0.4 % 11/06/22 17:11 Baso % (Auto) 0.4 % 11/06/22 17:11 Neut # (Auto) 9.11 10^3/uL (1.8-7.7) H 11/06/22 17:11 Lymph # (Auto) 1.7 10^3/uL (0.8-4.8) 11/06/22 17:11 Millard # (Auto) 0.5 10^3/uL (0.2-0.9) 11/06/22 17:11 Eos # (Auto) 0.1 10^3/uL (0.0-0.8) 11/06/22 17:11 Baso # (Auto) 0.1 10^3/uL (0.0-0.1) 11/06/22 17:11 Nucleated RBC % (auto) 0 % 11/06/22 17:11 Nucleated RBCs # 0.0 /100WBC 11/06/22 17:11 Sodium 135 mmol/L (136-145) L 11/06/22 17:11 Potassium 3.9 mmol/L (3.5-5.1) 11/06/22 17:11 Chloride 97 mmol/L (98-107) L 11/06/22 17:11 Carbon Dioxide 21 mmol/L (22-29) L 11/06/22 17:11 Anion Gap 20.9 (5-19) H 11/06/22 17:11 BUN 6 mg/dL (6-20) 11/06/22 17:11 Creatinine 0.7 mg/dL (0.5-0.9) 11/06/22 17:11 GFR Calculation 102.8 mL/min (90-130) 11/06/22 17:11 Glucose 82 mg/dL (65-115) 11/06/22 17:11 Calculated Osmolality 277 mOsm/kg (285-295) L 11/06/22 17:11 Calcium 9.5 mg/dL (8.5-10.5) 11/06/22 17:11 Magnesium 2.0 mg/dL (1.7-2.3) 11/06/22 17:11 Total Bilirubin 0.2 mg/dL (0.15-1.2) 11/06/22 17:11 AST 15 U/L (0-32) 11/06/22 17:11 ALT 13 U/L (0-33) 11/06/22 17:11 Alkaline Phosphatase 93 U/L (35-105) 11/06/22 17:11 C-Reactive Protein 4.6 mg/L (0.0-4.9) 11/06/22 17:11 Total Protein 7.7 g/dL (6.6-8.7) 11/06/22 17:11 Albumin 4.8 g/dL (3.5-5.2) 11/06/22 17:11 Globulin 2.9 g/dL (1.3-4.6) 11/06/22 17:11 Procalcitonin 0.02 ng/mL (0-0.5) 11/06/22 17:11 TSH 0.70 uIU/mL (0.27-4.20) 11/06/22 17:11 HCG, Qual Negative (Negative) 11/06/22 19:02 Urine Color Yellow (Yellow) 11/06/22 18:52 Urine Appearance Sl hazy (CLEAR) A 11/06/22 18:52 Urine pH 6 (5-7) 11/06/22 18:52 Ur Specific Logan 1.020 (1.005-1.030) 11/06/22 18:52 Urine Protein Neg (Negative) 11/06/22 18:52 Urine Glucose (UA) Norm (Normal) 11/06/22 18:52 Urine Ketones 2+ (Negative) H 11/06/22 18:52 Urine Blood Neg (Negative) 11/06/22 18:52 Urine Nitrate Negative (Negative) 11/06/22 18:52 Urine Bilirubin Neg (Negative) 11/06/22 18:52 Urine Urobilinogen Neg mg/dL (Negative) 11/06/22 18:52 Ur Leukocyte Esterase Negative (Negative) 11/06/22 18:52 Coronavirus 229E (PCR) Not detected (NOT DETECT) 11/06/22 17:34 SARS-CoV-2 (PCR) Not detected (NOT DETECT) 11/06/22 17:34 Discharge Plan Discharge Patient Disposition: Home Clinical Impression: Abdominal pain, Dehydration, Acute viral syndrome Condition: Stable Prescriptions: No Action calcium citrate 200 mg (950 mg) tablet 200 mg PO QID magnesium citrate 100 mg capsule 400 mg PO DAILY Bariatric Multivitamins 45 mg iron- 800 mcg-120 mcg capsule PO vitamin B complex [B Complex-Vitamin B12] Tablet 1 tab PO DAILY vitamin b12 PO Algal [place]-3 DHA 200 mg capsule PO omeprazole 20 mg tablet,delayed release (DR/EC) 20 mg PO BID biotin 1 mg capsule 1 mg PO DAILY docusate sodium [Colace] 100 mg capsule 100 mg PO TID alprazolam 1 mg tablet 1 mg PO TID PRN (Reason: anxiety attacks) Qty: 30 2RF amitriptyline 100 mg tablet See Rx Instructions PO DAILY Qty: 30 5RF Rx Instructions: 1/2 or 1 tab 1 hr before sleep PO daily; bupropion HCl 300 mg tablet extended release 24 hr 300 mg PO QAM Qty: 30 5RF loratadine 10 mg tablet 10 mg PO DAILY Qty: 30 5RF ondansetron 4 mg tablet,disintegrating 4 mg PO Q8H PRN (Reason: nausea and vomiting) Qty: 30 2RF sumatriptan succinate 50 mg tablet 50 mg PO Q2H PRN (Reason: For severe headaches) Qty: 20 5RF albuterol sulfate 90 mcg/actuation HFA aerosol inhaler 2 puff inhalation Q6H PRN (Reason: shortness of breath or wheezing) Qty: 8.5 0RF furosemide [Lasix] 20 mg tablet 10 mg PO QAM Qty: 10 0RF Rx Instructions: 1/2 to 1 tab q am as needed for edema acetaminophen [Tylenol] 325 mg Tablet 325 mg PO QID PRN (Reason: Pain) Discharge Orders: Discharge ED (Routine); Ordered 11/06/22 Ordered By: Magdy Vazquez Referrals: Osiel Mukherjee MD [Primary Care Provider] - Discharge Diet: Advance as tolerated and Clear Liquid Discharge Activity: Increase activity as tolerated Patient Instructions: Dehydration (ED), Viral Syndrome (ED), Abdominal Pain (ED), Opioid Safety Activity Restrictions/Additional Instructions: Thank you for visiting the emergency department. You were seen and evaluated for abdominal pain associated with generalized illness. The exact cause of your symptoms is unclear. You were found to have dehydration and we are pleased that you improved with ED treatment. You may still have some symptoms associated with viral syndrome. Please follow-up with your primary care provider. They may consider referral to other specialists. Return to the emergency department for anything that you are concerned about and feel needs emergency department evaluation. Coding Level of Care Code ED Cell Room Supervisor for Andrade Fwtimoteo Exam Comprehensive
[2022-11-06 16:30] VITALS: BP 142/84; PULSE 98; RESP 14; O2SAT 96
[2022-11-06 17:19] LABS: Basophils # 0.1 10^3/uL (0.0-0.1); Basophils % 0.4 %; Eosinophils # 0.1 10^3/uL (0.0-0.8); Eosinophils % 0.4 %; Hematocrit 39.1 % (37.0-47.0); Hemoglobin 12.9 g/dL (11.5-15.3); Lymphocytes # 1.7 10^3/uL (0.8-4.8); Lymphocytes % 14.8 %; Mean Corpuscular Hemoglobin 30.3 pg (28.0-34.0); Mean Corpuscular Volume 91.8 fl (81-99); Monocytes # 0.5 10^3/uL (0.2-0.9); Neutrophils # 9.11 10^3/uL (1.8-7.7); Nucleated Red Blood Cells % 0 %; Platelet Count 270 10^3/cmm (130-400); Red Blood Count 4.26 10^6/uL (4.1-5.3); White Blood Count 11.4 10^3/uL (4.0-10.0)
--- NOTE | 2022-11-06 17:19 | CTR_ITS ---
PROCEDURE INFORMATION: Exam: CT Abdomen And Pelvis With Contrast Exam date and time: 11/06/2022 7:37 PM Age: 22 years old Clinical indication: Nausea and vomiting; Prior surgery; Surgery date: 1-6 months; Surgery type: Gastric sleeve; Additional info: N/v, recent lap band TECHNIQUE: Imaging protocol: Computed tomography of the abdomen and pelvis with contrast. Radiation optimization: All CT scans at this facility use at least one of these dose optimization techniques: automated exposure control; mA and/or kV adjustment per patient size (includes targeted exams where dose is matched to clinical indication); or iterative reconstruction. Contrast material: OMNI 350; Contrast volume: 100 ml; Contrast route: INTRAVENOUS (IV); Other protocol: This patient has received 0 known CTs and 0 known cardiac nuclear medicine studies in the 12 months prior to the current study. COMPARISON: CT chest abdpel w/*[id number] 06/02/2021 8:37 PM RADIATION DOSE METRICS: Total DLP (mGy-cm): 1197.51 FINDINGS: Liver: Normal. No mass. Gallbladder and bile ducts: Normal. No calcified stones. No ductal dilation. Pancreas: Normal. No ductal dilation. Spleen: Normal. No splenomegaly. Adrenal glands: Normal. No mass. Kidneys and ureters: Normal. No hydronephrosis. Stomach and bowel: Sequela of gastric sleeve. No obstruction. No mucosal thickening. Appendix: No evidence of appendicitis. Intraperitoneal space: Unremarkable. No free air. No significant fluid collection. Vasculature: Unremarkable. No abdominal aortic aneurysm. Lymph nodes: Unremarkable. No enlarged lymph nodes. Urinary bladder: Unremarkable as visualized. Reproductive: IUD noted in expected positioning. Bones/joints: No acute fracture. Soft tissues: Unremarkable. CT/CT abdomen pelvis w con* [id number] IMPRESSION: No acute findings.
[2022-11-06] MEDS: sodium chloride 0.9% 1,000 ML 999 ML IV (17:26)
[2022-11-06] MEDS: ketorolac 30 mg/mL INJ IVP (17:27)
[2022-11-06] MEDS: metoclopramide 5 mg/mL SDV 2 mL 10 MG IVP (17:29)
[2022-11-06] MEDS: diphenhydrAMINE 50 mg/mL SDV 1mL 25 MG IVP (17:30)
[2022-11-06 17:50] LABS: Procalcitonin 0.02 ng/mL (0-0.5)
[2022-11-06 17:58] VITALS: BP 130/61; PULSE 80; RESP 14; O2SAT 98
[2022-11-06 18:01] LABS: Alanine Aminotransferase 13 U/L (0-33); Albumin Level 4.8 g/dL (3.5-5.2); Alkaline Phosphatase 93 U/L (35-105); Anion Gap 20.9 (5-19); Aspartate Amino Transferase 15 U/L (0-32); Blood Urea Nitrogen 6 mg/dL (6-20); C Reactive Protein 4.6 mg/L (0.0-4.9); Calcium 9.5 mg/dL (8.5-10.5); Carbon Dioxide 21 mmol/L (22-29); Chloride 97 mmol/L (98-107); Globulin 2.9 g/dL (1.3-4.6); Glomerular Filtration Rate 102.8 mL/min (90-130); Glucose 82 mg/dL (65-115); Osmolality Calculated 277 mOsm/kg (285-295); Potassium 3.9 mmol/L (3.5-5.1); Sodium 135 mmol/L (136-145); Total Bilirubin 0.2 mg/dL (0.15-1.2); Total Protein 7.7 g/dL (6.6-8.7)
[2022-11-06 18:59] LABS: HCG Qualitative Urine. Negative (Negative)
[2022-11-06 19:03] LABS: Add Urine Microscopic? NO; Charge for UA Resulting for Rev
[2022-11-06 19:04] VITALS: BP 111/53; PULSE 78; RESP 18; O2SAT 100
[2022-11-06 19:13] LABS: Bilirubin Urine Neg (Negative); Blood Urine Neg (Negative); Glucose Urine UA Norm (Normal); Ketones Urine 2+ (Negative); Leukocyte Esterase Urine Negative (Negative); Nitrate Urine Negative (Negative); Protein Urine Neg (Negative); Urine Appearance SL Hazy (CLEAR); Urine Color Yellow (Yellow); Urobilinogen Urine Neg (Negative); pH Urine 6 (5-7)
[2022-11-06 19:27] LABS: Adenovirus Not Detected (NOT DETECT); Chlamydia Pneumoniae Not Detected (NOT DETECT); Coronavirus 229E,HKU1,NL63,OC4 Not Detected (NOT DETECT); Human Metapneumovirus Not Detected (NOT DETECT); Human Rhinovirus/Enterovirus Not Detected (NOT DETECT); Influenza A Not Detected (NOT DETECT); Influenza A H1 Not Detected (NOT DETECT); Influenza A H1-2009 Not Detected (NOT DETECT); Influenza A H3 Not Detected (NOT DETECT); Influenza B Not Detected (NOT DETECT); Mycoplasma Pneumoniae Not Detected (NOT DETECT); Parainfluenza Virus Type 1 Not Detected (NOT DETECT); Parainfluenza Virus Type 2 Not Detected (NOT DETECT); Parainfluenza Virus Type 3 Not Detected (NOT DETECT); Parainfluenza Virus Type 4 Not Detected (NOT DETECT); Respiratory Syncytial Virus A Not Detected (NOT DETECT); Respiratory Syncytial Virus B Not Detected (NOT DETECT); SARS-COV-2 Not Detected (NOT DETECT)
[2022-11-06 19:31] LABS: HCG, Serum Qual Negative (Negative)
[2022-11-06] MEDS: iohexol 350 mg/mL 500 mL Btl (per mL) IV (19:38)
== END 2022-11-06 20:24 | disposition home or self-care (01) ==
PROVIDERS: Emergency Provider Emergency Medicine; PCP Family Medicine Adult Medicine
DX: B34.9 Viral infection, unspecified (principal); R10.11 Right upper quadrant pain; E86.0 Dehydration; Z20.822 Contact with and (suspected) exposure to COVID-19
CPT/HCPCS: 74177; 80053; 81003; 81025; 83735; 84145; 84443; 84703; 85025; 86140; 87635; 96361; 96374; 96375; 99285; J1200; J1885; J2765; J7030; Q9967

== ENCOUNTER → 2022-12-16 12:07 | Outpatient (BNVA) | payer OTHER, SELFPAY | PROVIDERS: PCP Family Medicine Adult Medicine; Visit Provider Emergency Medicine | DX: J02.9 Acute pharyngitis, unspecified (principal); J06.9 Acute upper respiratory infection, unspecified | CPT/HCPCS: 87071; 87880 ==

== ENCOUNTER 2022-12-22 08:59 | Outpatient (CLI) | payer OTHER, SELFPAY ==
[2022-12-22 09:34] LABS: Basophils # 0.1 10^3/uL (0.0-0.1); Basophils % 0.5 %; Eosinophils # 0.2 10^3/uL (0.0-0.8); Eosinophils % 2.4 %; Hematocrit 40.1 % (37.0-47.0); Hemoglobin 12.9 g/dL (11.5-15.3); Lymphocytes % 51.3 %; Mean Corpuscular HGB Conc 32.2 g/dL (30.0-36.0); Mean Corpuscular Hemoglobin 30.1 pg (28.0-34.0); Mean Corpuscular Volume 93.5 fl (81-99); Mean Platelet Volume 11.2 fL (7.4-10.4); Monocytes # 0.7 10^3/uL (0.2-0.9); Monocytes % 7.2 %; Neutrophils # 3.68 10^3/uL (1.8-7.7); Neutrophils % 38.2 %; Nucleated Red Blood Cells % 0 %; Platelet Count 256 10^3/cmm (130-400); Red Blood Count 4.29 10^6/uL (4.1-5.3); Red Cell Distribution Width 11.9 % (12.1-15.1); White Blood Count 9.7 10^3/uL (4.0-10.0)
[2022-12-22 09:43] LABS: Fibrinogen 281 mg/dL (174-498)
[2022-12-22 09:49] LABS: Add Urine Microscopic? YES; Bilirubin Urine 1+ (Negative); Blood Urine 2+ (Negative); Glucose Urine UA Norm (Normal); Ketones Urine 1+ (Negative); Leukocyte Esterase Urine Negative (Negative); Nitrate Urine Negative (Negative); Protein Urine Neg (Negative); RBC Urine 0-4 /hpf (0-2); Specific Gravity, Urine 1.025 (1.005-1.030); Urine Appearance Cloudy (CLEAR); Urine Color Yellow (Yellow); Urobilinogen Urine 1 mg/dL (Negative); pH Urine 5 (5-7)
[2022-12-22 09:50] LABS: Add Urine Culture? No; Bacteria Urine 2+ /hpf; Mucus Urine 1+ /hpf; Squamous Epithelial Cell Urine 25-40 /hpf (0-5)
[2022-12-22 10:14] LABS: Alanine Aminotransferase 18 U/L (0-33); Albumin Level 4.5 g/dL (3.5-5.2); Alkaline Phosphatase 70 U/L (35-105); Anion Gap 15.4 (5-19); Aspartate Amino Transferase 16 U/L (0-32); Blood Urea Nitrogen 12 mg/dL (6-20); Calcium 8.9 mg/dL (8.5-10.5); Carbon Dioxide 25 mmol/L (22-29); Chloride 103 mmol/L (98-107); Chol HDL Ratio 4.43 mg/dL (0.0-4.40); Cholesterol 195 mg/dL (0-200); Ferritin 20 ng/mL (15-150); Globulin 2.2 g/dL (1.3-4.6); Glomerular Filtration Rate 68.1 mL/min (90-130); Glucose 81 mg/dL (65-115); HDL Cholesterol 44 mg/dL (60-100); Iron 80 ug/dL (37-145); LDL Cholesterol Calculated 122 mg/dL (50-129); LDL HDL Ratio 2.77 RATIO (0.00-3.22); Osmolality Calculated 289 mOsm/kg (285-295); Percent Saturation 28.9 % (20-50); Potassium 3.4 mmol/L (3.5-5.1); Sodium 140 mmol/L (136-145); Thyroid Stimulating Hormone 4.22 uIU/mL (0.27-4.20); Total Bilirubin 0.4 mg/dL (0.15-1.2); Total Iron Binding Capacity 276 mcg/dl; Total Protein 6.7 g/dL (6.6-8.7); Triglycerides 147 mg/dL (0-150); Unsaturated Iron Binding 196 ug/dL (112-347)
== END 2022-12-22 09:00 | disposition home or self-care (01) ==
PROVIDERS: PCP Family Medicine Adult Medicine; Visit Provider Family Medicine Adult Medicine
DX: E66.01 Morbid (severe) obesity due to excess calories (principal); Z68.41 Body mass index [BMI] 40.0-44.9, adult; Z98.84 Bariatric surgery status
CPT/HCPCS: 80053; 80061; 81001; 82728; 83525; 83540; 83550; 83735; 84443; 85025; 85384

== ENCOUNTER 2023-02-15 17:53 | Emergency (ER) | payer OTHER, SELFPAY ==
[2023-02-15 18:04] VITALS: BP 135/87; PULSE 82; RESP 17; TEMP 36.7; O2SAT 100; BMI 30.7
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
[2023-02-15] MEDS: acetaminophen 500 mg Tablet PO (18:53)
[2023-02-15 18:58] VITALS: BP 157/83
[2023-02-15 20:14] VITALS: RESP 18
[2023-02-15] MEDS: morphine 4 mg/mL SDV 1 mL IM (20:14)
[2023-02-15] MEDS: metoclopramide 5 mg/mL SDV 2 mL 10 MG IM (20:14)
[2023-02-15 20:18] VITALS: BP 150/78; PULSE 86; O2SAT 94
== END 2023-02-15 20:19 | disposition home or self-care (01) ==
PROVIDERS: Emergency Provider Nurse Practitioner Family; PCP Family Medicine Adult Medicine
DX: S16.1XXA Strain of muscle, fascia and tendon at neck level, initial encounter (principal); M54.50 Low back pain, unspecified; M25.552 Pain in left hip; V89.2XXA Person injured in unspecified motor-vehicle accident, traffic, initial encounter
CPT/HCPCS: 70450; 72100; 72125; 73502; 96372; 99284; J2270; J2765

== ENCOUNTER → 2023-03-08 08:35 | Outpatient (BNVA) | payer OTHER, SELFPAY | PROVIDERS: PCP Family Medicine Adult Medicine; Visit Provider Family Medicine Adult Medicine | DX: R79.89 Other specified abnormal findings of blood chemistry (principal); F41.9 Anxiety disorder, unspecified; F32.9 Major depressive disorder, single episode, unspecified; E66.9 Obesity, unspecified; Z98.84 Bariatric surgery status | CPT/HCPCS: 80048; 84443 ==

== ENCOUNTER → 2023-09-18 18:15 | Outpatient (BNVA) | payer OTHER, SELFPAY | PROVIDERS: PCP Family Medicine Adult Medicine; Visit Provider Registered Nurse Neonatal Intensive Care | DX: J02.9 Acute pharyngitis, unspecified (principal) | CPT/HCPCS: 87880 ==

== ENCOUNTER → 2023-11-30 09:21 | Outpatient (BNVA) | payer OTHER, SELFPAY | PROVIDERS: PCP Family Medicine Adult Medicine; Visit Provider Family Medicine Adult Medicine | DX: F31.81 Bipolar II disorder (principal); F41.9 Anxiety disorder, unspecified; F32.9 Major depressive disorder, single episode, unspecified; Z98.84 Bariatric surgery status | CPT/HCPCS: 80053; 80178 ==

== ENCOUNTER → 2024-01-04 15:17 | Outpatient (BNVA) | payer OTHER, SELFPAY | PROVIDERS: PCP Family Medicine Adult Medicine; Visit Provider Orthopaedic Surgery | DX: M54.50 Low back pain, unspecified (principal); M54.2 Cervicalgia; M54.16 Radiculopathy, lumbar region | CPT/HCPCS: 72050; 72110 ==

== ENCOUNTER → 2024-05-22 14:40 | Outpatient (BNVA) | payer OTHER, SELFPAY | PROVIDERS: PCP Family Medicine Adult Medicine; Visit Provider Nurse Practitioner | DX: R39.9 Unspecified symptoms and signs involving the genitourinary system (principal) | CPT/HCPCS: 81000; 87086 ==

== ENCOUNTER → 2025-02-07 10:58 | Outpatient (BNVA) | payer OTHER, SELFPAY | PROVIDERS: PCP Family Medicine; Visit Provider Family Medicine | DX: F31.81 Bipolar II disorder (principal) | CPT/HCPCS: 80053; 80061; 80178; 84439; 84443; 85025 ==

== ENCOUNTER → 2025-07-03 09:08 | Outpatient (BNVA) | payer OTHER, SELFPAY | PROVIDERS: PCP Family Medicine; Visit Provider Family Medicine | DX: Z41.9 Encounter for procedure for purposes other than remedying health state, unspecified (principal) | CPT/HCPCS: 80053; 82306; 82607; 82728; 83550; 84134; 85025 ==

== ENCOUNTER → 2025-07-10 10:52 | Outpatient (BNVA) | payer OTHER, SELFPAY | PROVIDERS: PCP Family Medicine | DX: Z41.9 Encounter for procedure for purposes other than remedying health state, unspecified (principal) | CPT/HCPCS: 82040; 85025 ==

== ENCOUNTER 2025-08-04 14:53 | Outpatient (CLI) | payer OTHER, SELFPAY ==
[2025-08-04 15:19] LABS: Hematocrit 31.9 % (36-47); Hemoglobin 10.20 g/dL (11.27-16.99); Mean Corpuscular HGB Conc 32.0 g/dL (30-55); Mean Corpuscular Hemoglobin 29.6 pg (27-33); Mean Corpuscular Volume 92.5 fl (85-98); Nucleated Red Blood Cells % 0 %; Platelet Count 239 10^3/cmm (157-399); Red Blood Count 3.45 10^6/uL (3.85-5.65); White Blood Count 7.08 10^3/uL (3.29-11.43)
[2025-08-04 15:46] LABS: Ferritin 8 ng/mL (15-150); Iron 16 ug/dL (37-145); Total Iron Binding Capacity 316 mcg/dl; Unsaturated Iron Binding 300 ug/dL (112-347)
== END 2025-08-04 14:54 | disposition home or self-care (01) ==
LOC: LAB 14:54
PROVIDERS: PCP Family Medicine; Visit Provider Family Medicine
DX: Z41.9 Encounter for procedure for purposes other than remedying health state, unspecified (principal)
CPT/HCPCS: 36415; 82728; 83540; 83550; 85025

== ENCOUNTER 2025-09-01 16:41 | Outpatient (CLI) | payer OTHER, SELFPAY ==
[2025-09-01 17:16] LABS: Hematocrit 35.9 % (36-47); Hemoglobin 11.60 g/dL (11.27-16.99); Mean Corpuscular HGB Conc 32.3 g/dL (30-55); Mean Corpuscular Hemoglobin 30.3 pg (27-33); Mean Corpuscular Volume 93.7 fl (85-98); Nucleated Red Blood Cells % 0 %; Platelet Count 254 10^3/cmm (157-399); Red Blood Count 3.83 10^6/uL (3.85-5.65); White Blood Count 6.46 10^3/uL (3.29-11.43)
[2025-09-01 18:22] LABS: Ferritin 35 ng/mL (15-150); Iron 74 ug/dL (37-145); Total Iron Binding Capacity 336 mcg/dl; Unsaturated Iron Binding 262 ug/dL (112-347)
== END 2025-09-01 16:42 | disposition home or self-care (01) ==
LOC: LAB 16:42
PROVIDERS: PCP Family Medicine; Visit Provider Family Medicine
DX: D50.9 Iron deficiency anemia, unspecified (principal)
CPT/HCPCS: 36415; 82728; 83540; 83550; 85025